=== PATIENT | female | born 1945 | race Caucasian/White ===

== ENCOUNTER 2017-03-02 17:48 | Inpatient (IN) | payer BC, OTHER ==
[~2017-03-02] VITALS: Ht 167.6 cm; Wt 91.0 kg
[~2017-03-02 17:48] MED LIST changes: -BNTHP PO; -CYAN100T PO; -ERGO500037 PO
[2017-03-02] MEDS ORDERED: ONDANSETRON INJ 2 MG/ML 2 ML VIAL IV STA (18:17)
[2017-03-02] MEDS ORDERED: SODIUM CHLORIDE 0.9% 1000ML 1,000 ML IV STA (18:17)
[2017-03-02] MEDS ORDERED: HYDROmorphone INJ 0.5 MG/0.5 ML SYR IV PRN (18:30)
[2017-03-02] MEDS ORDERED: OPTIRAY 320 IV PRN (18:30)
[2017-03-02 18:33] LABS: BASO % 0.2 %; BASO ABS # 0.03 K/uL (0-0.2); HEMOGLOBIN 15.7 g/dL (12.0-16.0); IG# 0.08 K/uL (0.00-0.02); LYMPH ABS # 1.66 K/uL (1.2-3.4); MEAN CELL VOLUME 89.5 fL (80-100); MEAN CORPUSCULAR HEMOGLOBIN 31.2 pg (25-34); MEAN CORPUSCULAR HGB CONC 34.9 g/dl (32-36); MEAN PLATELET VOLUME 11.5 fL (7.4-10.4); MONO % 9.8 %; MONO ABS # 1.81 K/uL (0.11-0.59); NEUT % 80.6 %; NEUT ABS # 14.92 K/uL (1.4-6.5); PLATELET COUNT 281 K/uL (130-400); RED CELL DISTRIBUTION WIDTH CV 13.3 % (11.5-14.5); RED CELL DISTRIBUTION WIDTH SD 43.6 fL (36.4-46.3)
--- NOTE | 2017-03-02 18:36 | EMERGENCY ROOM VISIT NOTE ---
History Report prepared by Anuel: David Kemp Under the Supervision of: Dr. Danny Sullivan M.D. First contact with patient: 18:04 Chief Complaint: GI ASSESSMENT Stated Complaint: INTESTINAL PAIN,NAUSEA History of Present Illness The patient is a 71 year old female who presents to the Emergency Room with complaints of constant abdominal pain beginning three weeks ago. The patient states that she saw her PCP about a week ago and was told to provide a sample for c diff testing. She notes that the specimen was not used because it was too formed. She reports that she gave a second sample for testing today. The patient states that her PCP started her on Bentyl, which she notes has worsened her pain. She also complains of occasional black stool, chills, a headache, and a decreased appetite after taking Kaopectate. Pt denies LOC, fevers, diaphoresis , visual changes, neck pain, chest pain, breathing difficulties, nausea, vomiting, back pain, hematochezia, urinary symptoms, numbness, weakness, lymphadenopathy, rash, swollen glands, trauma or other complaints. She notes that she has not taken pepto for the past few days. She notes that she has a history of diabetes, hypertension, and has had a cholecystectomy. She rates her pain as a 9/10. Source of History: patient Onset: three weeks ago Position: abdomen Symptom Intensity: 9/10 Timing: constant Modifying Factors (Worsening): other (Bentyl) Associated Symptoms: + chills, + headache Note: She also complains of occasional black stool and a decreased appetite. Review of Systems See HPI for pertinent positives and negatives. A total of ten systems were reviewed and were otherwise negative. Past Medical & Surgical Medical Problems: (1) Diabetes (2) Diabetes (3) Hypertension (4) Hypertension Surgical Problems: (1) S/P cholecystectomy (2) S/P cholecystectomy Family History No pertinent family history stated. Social History Smoking Status: Former Smoker Marital Status: Occupation Status: employed Current/Historical Medications Scheduled Atorvastatin (Lipitor), 20 MG PO QPM B-Complex Vitamins (Vitamin B Complex), 1 TAB PO QAM Bupropion Hcl (Wellbutrin Xl), 1 TAB PO QAM Cyanocobalamin (Vitamin B-12), 100 MCG PO DAILY Ergocalciferol (Vitamin D 92898 Unit), 50,000 UNIT PO WK Levothyroxine Sodium (Synthroid), 175 MCG PO QAM Lisinopril (Zestril), 1 TAB PO Q2D Metformin Hcl (Glucophage), 500 MG PO DAILY Harrell-3 Fatty Acids (Fish Oil), 1 CAP PO QAM Scheduled PRN Dicyclomine HCl (Dicyclomine HCl), 10 MG PO Q6 PRN for ABD PAIN Allergies Coded Allergies: NO KNOWN DRUG ALLERGIES (Verified Allergy, Unknown, ., 02/25/15) Physical Exam Vital Signs Date Time Temp Pulse Resp B/P (MAP) Pulse Ox O2 Delivery O2 Flow Rate FiO2 03/02/17 21:32 83 20 104/52 95 Nasal Cannula 2.0 03/02/17 21:10 80 18 94 03/02/17 21:05 81 24 93 Nasal Cannula 2.0 03/02/17 21:01 91/51 03/02/17 21:00 82 21 95 03/02/17 20:30 80 20 102/45 94 Nasal Cannula 2.0 03/02/17 20:00 85 21 96/51 94 Nasal Cannula 2.0 03/02/17 19:22 96 Nasal Cannula 2.0 03/02/17 19:20 87 Room Air 03/02/17 19:14 88 03/02/17 19:07 89 20 104/53 94 Room Air 03/02/17 17:59 37.6 107 20 104/61 94 Room Air Physical Exam GENERAL: Awake, alert, uncomfortable-appearing, in no distress HENT: Normocephalic, atraumatic. Oropharynx unremarkable. EYES: Normal conjunctiva. Sclera non-icteric. NECK: Supple. No nuchal rigidity. FROM. No JVD. RESPIRATORY: Clear to auscultation. CARDIAC: Regular rate, normal rhythm. Extremities warm and well perfused. Pulses equal. ABDOMEN: Soft, non-distended. No rebound or guarding. No masses. Mild diffuse tenderness but worse on left lower side. RECTAL: Deferred. MUSCULOSKELETAL: Chest examination reveals no tenderness. The back is symmetrical on inspection without obvious abnormality. There is no CVA tenderness to palpation. No joint edema. LOWER EXTREMITIES: Calves are equal size bilaterally and non-tender. No edema. No discoloration. NEURO: Normal sensorium. No sensory or motor deficits noted. SKIN: No rash or jaundice noted. Medical Decision & Procedures ER Provider Diagnostic Interpretation: Radiology results as stated below per my review and radiologist interpretation: CT SCAN OF THE ABDOMEN AND PELVIS WITHOUT IV CONTRAST CLINICAL HISTORY: Generalized abdominal pain. COMPARISON STUDY: No priors. TECHNIQUE: CT scan of the abdomen and pelvis is performed from the lung bases to the proximal femora. Images are reviewed in the axial, sagittal, and coronal planes. IV contrast was not administered for this examination as per the referring clinician. Note that the examination was performed in suboptimal fashion without oral and IV contrast. A dose lowering technique was utilized adhering to the principles of ALARA. CT DOSE: 717.49 mGy.cm FINDINGS: Lung bases: The heart is normal in size and without pericardial effusion. There is a trace right pleural effusion. Bibasilar scarring versus atelectasis is noted. No airspace consolidation is seen typical for pneumonia. Liver: The unenhanced liver is normal in size, contour, and attenuation. There is mild central intrahepatic biliary ductal dilatation. Gallbladder: Not identified and presumed surgically absent. Spleen: Normal in size and attenuation. Pancreas: The unenhanced pancreas is atrophic and grossly unremarkable. Adrenal glands: Unremarkable. Kidneys: The unenhanced kidneys are atrophic and without hydronephrosis. There are no renal calculi identified. There is no evidence of contour deforming renal mass lesion. Abdominal vasculature: The abdominal aorta is normal in course and caliber noting moderate to advanced atherosclerotic calcification. Bowel: There is diffuse colonic wall thickening and edema with surrounding inflammatory change and fluid. This is greatest involving the right colon. The appearance is consistent with a nonspecific pancolitis. There are scattered colonic diverticula. No bowel obstruction is seen. The appendix is not visualized. There is a small duodenal diverticulum. Peritoneum: There is trace perisplenic ascites. A small volume of free fluid is seen within the paracolic gutters, right greater than left as well as in the pelvis. No intraperitoneal free air is seen. There is a small fat-containing umbilical hernia. Lymphadenopathy: None. Pelvic viscera: The bladder and uterus are normal as visualized. The right ovary appears enlarged and heterogeneous as seen on image #341. This measures 4.4 x 3.8 cm. There is also prominence of the left ovary which measures up to 3.3 cm. Skeletal structures: The skeletal structures are osteopenic. There is moderate lumbosacral spondylosis. No lytic or blastic lesions are seen. IMPRESSION: 1. Suboptimal examination without oral and IV contrast. 2. Findings are consistent with a nonspecific severe pancolitis. This is not in a vascular distribution and likely on an infectious/inflammatory basis. Clinical correlation will be required. 3. There is a small volume of abdominopelvic ascites, likely reactive. No intraperitoneal free air is seen. 4. Trace right pleural effusion. 5. The ovaries appear enlarged, heterogeneous, and hyperdense. This is of indeterminant etiology and significance. Follow-up with a pelvic ultrasound is recommended for further assessment. 6. Additional findings as above. Electronically signed by: Rk Mcpherson M.D. 03/02/2017 7:09 PM Laboratory Results 03/02/17 18:20 Red Blood Count 5.03, Mean Corpuscular Volume 89.5, Mean Corpuscular Hemoglobin 31.2, Mean Corpuscular Hemoglobin Concent 34.9, Mean Platelet Volume 11.5, Neutrophils (%) (Auto) 80.6, Lymphocytes (%) (Auto) 9.0, Monocytes (%) (Auto) 9.8, Eosinophils (%) (Auto) 0.0, Basophils (%) (Auto) 0.2, Neutrophils # (Auto) 14.92, Lymphocytes # (Auto) 1.66, Monocytes # (Auto) 1.81, Eosinophils # (Auto) 0.00, Basophils # (Auto) 0.03 03/02/17 18:20 Test 03/02/17 18:20 White Blood Count 18.50 K/uL (4.8-10.8) Red Blood Count 5.03 M/uL (4.2-5.4) Hemoglobin 15.7 g/dL (12.0-16.0) Hematocrit 45.0 % (37-47) Mean Corpuscular Volume 89.5 fL (80-100) Mean Corpuscular Hemoglobin 31.2 pg (25-34) Mean Corpuscular Hemoglobin Concent 34.9 g/dl (32-36) Platelet Count 281 K/uL (130-400) Mean Platelet Volume 11.5 fL (7.4-10.4) Neutrophils (%) (Auto) 80.6 % Lymphocytes (%) (Auto) 9.0 % Monocytes (%) (Auto) 9.8 % Eosinophils (%) (Auto) 0.0 % Basophils (%) (Auto) 0.2 % Neutrophils # (Auto) 14.92 K/uL (1.4-6.5) Lymphocytes # (Auto) 1.66 K/uL (1.2-3.4) Monocytes # (Auto) 1.81 K/uL (0.11-0.59) Eosinophils # (Auto) 0.00 K/uL (0-0.5) Basophils # (Auto) 0.03 K/uL (0-0.2) RDW Standard Deviation 43.6 fL (36.4-46.3) RDW Coefficient of Variation 13.3 % (11.5-14.5) Immature Granulocyte % (Auto) 0.4 % Immature Granulocyte # (Auto) 0.08 K/uL (0.00-0.02) Anion Gap 10.0 mmol/L (3-11) Est Creatinine Clear Calc Drug Dose 64.8 ml/min Estimated GFR () 76.6 Estimated GFR (Non- 66.1 BUN/Creatinine Ratio 14.9 (10-20) Calcium Level 8.6 mg/dl (8.5-10.1) Total Bilirubin 0.9 mg/dl (0.2-1) Direct Bilirubin 0.2 mg/dl (0-0.2) Aspartate Amino Transf (AST/SGOT) 14 U/L (15-37) Alanine Aminotransferase (ALT/SGPT) 13 U/L (12-78) Alkaline Phosphatase 57 U/L (45-117) Total Protein 6.1 gm/dl (6.4-8.2) Albumin 2.6 gm/dl (3.4-5.0) Lipase 50 U/L (73-393) Laboratory results reviewed by me Medications Administered Medications (Trade) Dose Ordered Sig/Sejal Route Start Time Stop Time Status Last Admin Dose Admin Sodium Chloride 1,000 ml @ 999 mls/hr Q1H1M STAT IV 03/02/17 18:17 03/02/17 19:17 DC 03/02/17 18:32 999 MLS/HR Hydromorphone HCl (Dilaudid Inj) 0.5 mg Q15M PRN IV 03/02/17 18:30 03/16/17 18:29 03/02/17 18:32 0.5 MG Ondansetron HCl (Zofran Inj) 4 mg NOW STAT IV 03/02/17 18:17 03/02/17 18:19 DC 03/02/17 18:32 4 MG Vancomycin HCl (Vancomycin Oral Soln) 125 mg NOW STAT PO 03/02/17 20:44 03/02/17 20:46 DC 03/02/17 21:28 125 MG Metronidazole (Flagyl / Nss) 500 mg NOW STAT IV 03/02/17 20:44 03/02/17 20:46 DC 03/02/17 21:28 500 MG ECG Indication: abdominal pain Rate (beats per minute): 95 Rhythm: sinus rhythm Findings: PAC, other (No ischemia) Change: Patient's electrocardiogram interpreted by me. ED Course 1814: The patient was evaluated in room A12. A complete history and physical exam was performed. Prior records suggest c diff results pending. 1816: Zofran Inj 4mg IV, Sodium Chloride 1000 ml @ 999 mls/hr IV 1907: I reevaluated and updated the patient. 2040: I discussed the patient's case with Dr. Pisano - [facility]. 2043: Metronidazole 500mg IV, Vancomycin HCl 125mg PO 2047: Upon reexamination, the patient was stable. I discussed the test results and treatment plan with her. Discussed the patient's case with Dr. Rene - Hospitalist[facility]ehuda. The patient will be evaluated for further treatment and disposition. Medical Decision Triage Nursing notes reviewed. The patient's presentation and history were concerning for abdominal pain. Etiologies such as appendicitis, diverticulitis, obstruction, inflammatory bowel disease, renal colic, PUD, biliary pathology, pancreatitis, mesenteric ischemia, aortic pathology, infections, genitourinary, UTI, perforated viscus, as well as others were entertained. The patient was evaluated. She had generalized abdominal tenderness but it was worse in the left lower quadrant. She was uncomfortable and requested analgesia. He was given IV normal saline, IV Zofran, and IV Dilaudid. Blood work and urinalysis were ordered. CT imaging was ordered. The patient had a significant leukocytosis. Chemistry panel was unremarkable. Urinalysis pending. CT scan revealed severe pancolitis. The patient's outpatient C. difficile testing then returned positive. Her condition would fit with severe C. difficile colitis. She had a consult placed with gastroenterology. Oral vancomycin and IV Flagyl was recommended. Consultation was made with the hospitalist service. She was informed and educated. She was pleased with the treatment. She was evaluated by the hospitalist in the Emergency Room for further management. Medication Reconcilliation Current Medication List: was personally reviewed by me Blood Pressure Screening Patient's blood pressure: Normal blood pressure Blood pressure disposition: Did not require urgent referral Consults Time Called: 2036 Consulting Physician: Dr. Pisano - [facility] Returned Call: 2040 Discussed the patient's case. Additional Consults: Time Called: 2044 Consulted Physician: Dr. Rene - [facility] Returned Call: 2047 Additional Comments: Discussed the patient's case. The patient will be evaluated for further treatment and disposition. Impression Primary Impression: C. difficile colitis Scribe Attestation The scribe's documentation has been prepared under my direction and personally reviewed by me in its entirety. I confirm that the note above accurately reflects all work, treatment, procedures, and medical decision making performed by me. Departure Information Dispostion Being Evaluated By Hospitalist Referrals Shahida Aldana M.D. (PCP) Patient Instructions My [facility]
[2017-03-02] MEDS ORDERED: ERGO500037 PO (18:48)
[2017-03-02] MEDS ORDERED: BNTHP PO (18:48)
[2017-03-02] MEDS ORDERED: CYAN100T PO (18:48)
[2017-03-02 18:51] LABS: ALBUMIN 2.6 gm/dl (3.4-5.0); CALCIUM 8.6 mg/dl (8.5-10.1); CREATININE 0.87 mg/dl (0.60-1.20); POTASSIUM 3.7 mmol/L (3.5-5.1)
[2017-03-02 18:54] LABS: TOTAL PROTEIN 6.1 gm/dl (6.4-8.2)
--- NOTE | 2017-03-02 19:10 | DIAGNOSTIC IMAGING REPORT ---
CT SCAN OF THE ABDOMEN AND PELVIS WITHOUT IV CONTRAST CLINICAL HISTORY: Generalized abdominal pain. COMPARISON STUDY: No priors. TECHNIQUE: CT scan of the abdomen and pelvis is performed from the lung bases to the proximal femora. Images are reviewed in the axial, sagittal, and coronal planes. IV contrast was not administered for this examination as per the referring clinician. Note that the examination was performed in suboptimal fashion without oral and IV contrast. A dose lowering technique was utilized adhering to the principles of ALARA. CT DOSE: 717.49 mGy.cm FINDINGS: Lung bases: The heart is normal in size and without pericardial effusion. There is a trace right pleural effusion. Bibasilar scarring versus atelectasis is noted. No airspace consolidation is seen typical for pneumonia. Liver: The unenhanced liver is normal in size, contour, and attenuation. There is mild central intrahepatic biliary ductal dilatation. Gallbladder: Not identified and presumed surgically absent. Spleen: Normal in size and attenuation. Pancreas: The unenhanced pancreas is atrophic and grossly unremarkable. Adrenal glands: Unremarkable. Kidneys: The unenhanced kidneys are atrophic and without hydronephrosis. There are no renal calculi identified. There is no evidence of contour deforming renal mass lesion. Abdominal vasculature: The abdominal aorta is normal in course and caliber noting moderate to advanced atherosclerotic calcification. Bowel: There is diffuse colonic wall thickening and edema with surrounding inflammatory change and fluid. This is greatest involving the right colon. The appearance is consistent with a nonspecific pancolitis. There are scattered colonic diverticula. No bowel obstruction is seen. The appendix is not visualized. There is a small duodenal diverticulum. Peritoneum: There is trace perisplenic ascites. A small volume of free fluid is seen within the paracolic gutters, right greater than left as well as in the pelvis. No intraperitoneal free air is seen. There is a small fat-containing umbilical hernia. Lymphadenopathy: None. Pelvic viscera: The bladder and uterus are normal as visualized. The right ovary appears enlarged and heterogeneous as seen on image #341. This measures 4.4 x 3.8 cm. There is also prominence of the left ovary which measures up to 3.3 cm. Skeletal structures: The skeletal structures are osteopenic. There is moderate lumbosacral spondylosis. No lytic or blastic lesions are seen. IMPRESSION: 1. Suboptimal examination without oral and IV contrast. 2. Findings are consistent with a nonspecific severe pancolitis. This is not in a vascular distribution and likely on an infectious/inflammatory basis. Clinical correlation will be required. 3. There is a small volume of abdominopelvic ascites, likely reactive. No intraperitoneal free air is seen. 4. Trace right pleural effusion. 5. The ovaries appear enlarged, heterogeneous, and hyperdense. This is of indeterminant etiology and significance. Follow-up with a pelvic ultrasound is recommended for further assessment. 6. Additional findings as above. Electronically signed by: Rk Mcpherson M.D. 03/02/2017 7:09 PM Dictated Date/Time: 03/02/2017 7:03 PM
[2017-03-02] MEDS ORDERED: VANCOMYCIN HCL 125 MG/2.5ML SOLN PO STA (20:44)
[2017-03-02] MEDS ORDERED: METRONIDAZOLE 500MG / 100ML NSS IV STA (20:44)
[2017-03-02] MEDS ORDERED: NITROGLYCERIN 0.4 MG SL PER TAB CHARGE SL PRN (22:15)
[2017-03-02] MEDS ORDERED: GLUCOSE 40% GEL 15 GM TUBE PO PRN (22:30)
[2017-03-02] MEDS ORDERED: GLUCAGON FOR INJ 1 MG VIAL SQ PRN (22:30)
[2017-03-02] MEDS ORDERED: GLUCOSE 10 TABS/TUBE PO PRN (22:30)
[2017-03-02] MEDS ORDERED: VANCOMYCIN HCL 125 MG/2.5ML SOLN PO SCH (22:30)
[2017-03-02] MEDS ORDERED: DEXTROSE 50% 50 ML SYR IV PRN (22:30)
[2017-03-02] MEDS ORDERED: SODIUM CHLORIDE 0.9% 1000ML 1,000 ML IV SCH (22:45)
--- NOTE | 2017-03-02 23:10 | History and Physical ---
History & Physical Date & Time of Service: Mar 02, 2017 at 22:31 Chief Complaint: Intestinal Pain,Nausea Primary Care Physician: Shahida Aldana M.D. History of Present Illness Source: patient, family, hospital records Pt is 71 y/o F with PMH HTN, DM II, hypothyroidism, dyslipidemia presented to ER with c/o abdominal pain x 3-4 weeks. Pt states past 3 weeks with abdominal pain. Started across lower abdomen but past several days with diffuse abdominal aching and pressure sensation. C/O diarrhea x 3-4 weeks with 3-9 episodes daily. Tried Kaopectate without relief. Pt states was seen by [facility] yesterday and had c-diff and Rx Bentyl. She feels abdominal pain worsened and presented to ER today. C-diff results positive today.[place] chilled today. She states sometimes noticed darker brown/black color stool and sometimes brown color. Denies hematochezia. Denies hx C-diff or around ill contact. Reports was on 2 antibiotics for sinusitis in 12/2016. Pt unsure of names but thinks may have been Levaquin and Flagyl? In ER temp: 37.6, P: 107 to 83, BP: 91/51 to 104/52. R: 20, 94% on 2L. WBC: 18.5. CT abd/pelvis: non-specific pancolitis. Pt given 1L NSS, zofran 4mg IV, dilaudid 0.5mg IV. GI consulted recommend vanco 125mg po and flagyl 500mg IV which was started in ER. Past Medical/Surgical History Medical Problems: (1) Diabetes Status: Chronic (2) Dyslipidemia Status: Chronic (3) Hx of squamous cell carcinoma of skin Permanent Comment: removed on face Status: Chronic (4) Hypertension Status: Chronic (5) Hypothyroidism Status: Chronic Surgical Problems: (1) Hx of bilateral breast reduction surgery Status: Resolved (2) Hx of bilateral cataract extraction Status: Resolved (3) Hx of knee surgery Permanent Comment: L meniscus repair Status: Resolved (4) Hx of repair of left rotator cuff Permanent Comment: L shoulder Status: Resolved (5) S/P cholecystectomy Status: Resolved Family History FH: breast cancer FH: lung cancer FH: melanoma Social History Smoking Status: Former Smoker (quit 1991, smoked 1-2ppd x 15 years) Smokeless Tobacco Use: No Alcohol Use: glass wine daily, hasn't drank for past 3 weeks with GI symptoms Drug Use: none Marital Status: Housing status: lives with family Occupational Status: employed Multi-Drug Resistant Organisms History of MDRO: No Allergies Coded Allergies: NO KNOWN DRUG ALLERGIES (Verified Allergy, Unknown, ., 02/25/15) Home Medications Scheduled Atorvastatin (Lipitor), 20 MG PO QPM B-Complex Vitamins (Vitamin B Complex), 1 TAB PO QAM Bupropion Hcl (Wellbutrin Xl), 1 TAB PO QAM Cyanocobalamin (Vitamin B-12), 100 MCG PO DAILY Ergocalciferol (Vitamin D 71655 Unit), 50,000 UNIT PO WK Levothyroxine Sodium (Synthroid), 175 MCG PO QAM Lisinopril (Zestril), 1 TAB PO Q2D Metformin Hcl (Glucophage), 500 MG PO DAILY [place]-3 Fatty Acids (Fish Oil), 1 CAP PO QAM Scheduled PRN Dicyclomine HCl (Dicyclomine HCl), 10 MG PO Q6 PRN for ABD PAIN Review of Systems Constitutional: + chills, No sweats Eyes: No worsening of vision, No eye pain, No redness, No discharge ENT: + tinnitus, No unusual epistaxis, No nasal symptoms, No sore throat, No trouble swallowing Respiratory: No cough, No sputum, No wheezing, No shortness of breath, No dyspnea on exertion, No dyspnea at rest, No hemoptysis Cardiovascular: + problem reported, No chest pain, No orthopnea, No PND, No edema, No palpitations Abdomen: + problem reported (see HPI) Musculoskeletal: No joint pain, No muscle pain, No swelling, No calf pain Genitourinary - Female: No dysuria, No urinary frequency, No urinary urgency, No urinary incontinence, No urinary retention, No hematuria Neurologic: No weakness, No numbness/tingling, No vertigo Endocrine: No excessive thirst, No excessive urination Hematologic / Lymphatic: No abnormal bleeding/bruising, No clotting problems, No night sweats Integumentary: No rash, No itch Physical Exam Vital Signs Date Time Temp Pulse Resp B/P (MAP) Pulse Ox O2 Delivery O2 Flow Rate FiO2 03/02/17 21:32 83 20 104/52 95 Nasal Cannula 2.0 03/02/17 21:10 80 18 94 03/02/17 21:05 81 24 93 Nasal Cannula 2.0 03/02/17 21:01 91/51 03/02/17 21:00 82 21 95 03/02/17 20:30 80 20 102/45 94 Nasal Cannula 2.0 03/02/17 20:00 85 21 96/51 94 Nasal Cannula 2.0 03/02/17 19:22 96 Nasal Cannula 2.0 03/02/17 19:20 87 Room Air 03/02/17 19:14 88 03/02/17 19:07 89 20 104/53 94 Room Air 03/02/17 17:59 37.6 107 20 104/61 94 Room Air General Appearance: WD/WN, no apparent distress Head: normocephalic, atraumatic Eyes: normal inspection, PERRL, EOMI, sclerae normal ENT: hearing grossly normal, pharynx normal, + pertinent finding (mildly dry mucous membranes) Neck: supple, no JVD, trachea midline Respiratory/Chest: chest non-tender, lungs clear, normal breath sounds, no respiratory distress, no accessory muscle use Cardiovascular: regular rate, rhythm, no edema, no murmur, normal peripheral pulses Abdomen/GI: normal bowel sounds, soft, + pertinent finding (diffuse tenderness to palpation without rebound or guarding) Back: no CVA tenderness Extremities/Musculoskelatal: normal inspection, normal capillary refill, no pedal edema, normal range of motion Neurologic/Psych: alert, normal mood/affect, oriented x 3 Skin: normal color, warm/dry Diagnostics Laboratory Results Results Past 24 Hours Test 03/02/17 18:20 03/02/17 22:11 03/02/17 22:12 Range/Units White Blood Count 18.50 4.8-10.8 K/uL Red Blood Count 5.03 4.2-5.4 M/uL Hemoglobin 15.7 12.0-16.0 g/dL Hematocrit 45.0 37-47 % Mean Corpuscular Volume 89.5 80-100 fL Mean Corpuscular Hemoglobin 31.2 25-34 pg Mean Corpuscular Hemoglobin Concent 34.9 32-36 g/dl Platelet Count 281 130-400 K/uL Mean Platelet Volume 11.5 7.4-10.4 fL Neutrophils (%) (Auto) 80.6 % Lymphocytes (%) (Auto) 9.0 % Monocytes (%) (Auto) 9.8 % Eosinophils (%) (Auto) 0.0 % Basophils (%) (Auto) 0.2 % Neutrophils # (Auto) 14.92 1.4-6.5 K/uL Lymphocytes # (Auto) 1.66 1.2-3.4 K/uL Monocytes # (Auto) 1.81 0.11-0.59 K/uL Eosinophils # (Auto) 0.00 0-0.5 K/uL Basophils # (Auto) 0.03 0-0.2 K/uL RDW Standard Deviation 43.6 36.4-46.3 fL RDW Coefficient of Variation 13.3 11.5-14.5 % Immature Granulocyte % (Auto) 0.4 % Immature Granulocyte # (Auto) 0.08 0.00-0.02 K/uL Sodium Level 135 136-145 mmol/L Potassium Level 3.7 3.5-5.1 mmol/L Chloride Level 100 98-107 mmol/L Carbon Dioxide Level 24 21-32 mmol/L Anion Gap 10.0 3-11 mmol/L Blood Urea Nitrogen 13 7-18 mg/dl Creatinine 0.87 0.60-1.20 mg/dl Est Creatinine Clear Calc Drug Dose 64.8 ml/min Estimated GFR () 76.6 Estimated GFR (Non- 66.1 BUN/Creatinine Ratio 14.9 10-20 Random Glucose 133 70-99 mg/dl Calcium Level 8.6 8.5-10.1 mg/dl Total Bilirubin 0.9 0.2-1 mg/dl Direct Bilirubin 0.2 0-0.2 mg/dl Aspartate Amino Transf (AST/SGOT) 14 15-37 U/L Alanine Aminotransferase (ALT/SGPT) 13 12-78 U/L Alkaline Phosphatase 57 45-117 U/L Total Protein 6.1 6.4-8.2 gm/dl Albumin 2.6 3.4-5.0 gm/dl Lipase 50 73-393 U/L Microbiology Results 03/02/17 Blood Culture, Ordered Pending 03/02/17 Blood Culture, Ordered Pending Diagnostic Radiology CT ABD/PELVIS: IMPRESSION: 1. Suboptimal examination without oral and IV contrast. 2. Findings are consistent with a nonspecific severe pancolitis. This is not in a vascular distribution and likely on an infectious/inflammatory basis. Clinical correlation will be required. 3. There is a small volume of abdominopelvic ascites, likely reactive. No intraperitoneal free air is seen. 4. Trace right pleural effusion. 5. The ovaries appear enlarged, heterogeneous, and hyperdense. This is of indeterminant etiology and significance. Follow-up with a pelvic ultrasound is recommended for further assessment. 6. Additional findings as above. EKG EKG: sinus rhythm, rate 95, PACs Impression Assessment and Plan C-DIFF COLITIS Pt with 3-4 week hx abdominal pain, 3-9 episodes diarrhea daily, worsening pain and presented to ER today. Hx antibiotic use 12/2016. [place] chilled today. Had out-pt stool yesterday +c-diff toxin. CT abd/pelvis: Findings are consistent with a nonspecific severe pancolitis. There is a small volume of abdominopelvic ascites, likely reactive. No intraperitoneal free air is seen. In ER temp: 37.6 , P: 107 to 83, BP: 91/51 to 104/52. R: 20, 94% on 2L. WBC: 18.5. Pt given 1L NSS, zofran 4mg IV, dilaudid 0.5mg IV. GI consulted recommend vanco po and flagyl IV which was started in ER. -lactic acid and blood cultures ordered and pending -IVF -Vancomycin po -Flagyl IV -zofran prn -morphine prn -cbc, cmp in am -GI consult DM II No previous HA1c available -hold metformin -NovoLog sliding scale per protocol HTN -Hold lisinopril with low end BP's HYPERLIPIDEMIA -holding lipitor currently with current GI symptoms HYPOTHYROIDISM -continue levothyroxine DEPRESSION -continue wellbutrin DVT PROPHYLAXIS -SCDs DISPOSITION -admit tele -Full Code as per discussion with pt -Follows with Dr Aldana for routine care Pt was seen with Dr Dong. See addendum Agree with above H and P. 71F who recently hd two courses of abx in December for her sinuses presents with ongoing diarrhea for last 3 weeks.Watery diarrhea anywhere between 3 -7 episodes a day. HAs chills but no fevers. HAs abdominal pain. Appetite not great. C diff positive and ct scan shows maldonado colitis. 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 Y/N: Yes Risk Level: Moderate Given or contraindicated: SCD's Additional Copies To Shahida Aldana M.D.
[2017-03-02 23:30] VITALS: BP 122/74; PULSE 81; TEMP 37; Ht 167.6 cm; Wt 91.0 kg
[2017-03-03] VITALS (7 sets, daily range): BP systolic 81–115; BP diastolic 52–67; PULSE 69–85; TEMP 36.8–37.8; O2SAT 90–99
[2017-03-03] MEDS: MoRPHine SULFATE 2 MG/ML CARP IV PRN ×5 (00:24→20:14)
[2017-03-03] MEDS: ONDANSETRON INJ 2 MG/ML 2 ML VIAL IV PRN ×2 (00:24→09:06)
[2017-03-03] MEDS: ACETAMINOPHEN 325 MG TAB PO PRN ×2 (03:57→16:38)
[2017-03-03] MEDS ORDERED: PNEUMOCOCCAL POLYSACCHARIDES 25 MCG/0.5 ML VIAL/SYR IM. ONE (05:00)
[2017-03-03] MEDS ORDERED: PNEUMOCOCCAL ADMINISTRATION CHARGE ONE (05:00)
[2017-03-03] MEDS: METRONIDAZOLE / NSS 500 MG in PREMIXED NSS 100 ML IV SCH ×3 (05:40→20:27)
[2017-03-03] MEDS: LEVOTHYROXINE 175 MCG TAB PO SCH (05:40)
[2017-03-03 06:38] LABS: BASO % 0.2 %; BASO ABS # 0.03 K/uL (0-0.2); EOS % 0.1 %; EOS ABS # 0.01 K/uL (0-0.5); HEMOGLOBIN 12.8 g/dL (12.0-16.0); IG# 0.09 K/uL (0.00-0.02); LYMPH % 6.3 %; LYMPH ABS # 1.09 K/uL (1.2-3.4); MEAN CORPUSCULAR HEMOGLOBIN 30.3 pg (25-34); MEAN CORPUSCULAR HGB CONC 33.7 g/dl (32-36); MEAN PLATELET VOLUME 11.8 fL (7.4-10.4); MONO % 10.9 %; NEUT ABS # 14.27 K/uL (1.4-6.5); PLATELET COUNT 251 K/uL (130-400); RED CELL DISTRIBUTION WIDTH CV 13.2 % (11.5-14.5); RED CELL DISTRIBUTION WIDTH SD 43.2 fL (36.4-46.3); WHITE BLOOD COUNT 17.39 K/uL (4.8-10.8)
[2017-03-03 06:48] LABS: ALBUMIN 1.9 gm/dl (3.4-5.0); CALCIUM 7.8 mg/dl (8.5-10.1); CREATININE 0.81 mg/dl (0.60-1.20); POTASSIUM 3.6 mmol/L (3.5-5.1)
[2017-03-03 07:01] LABS: TOTAL PROTEIN 4.7 gm/dl (6.4-8.2)
[2017-03-03 08:33] LABS: HEMOGLOBIN A1C 5.6 % (4.5-5.6)
[2017-03-03] MEDS: INSULIN ASPART 100 UNITS/ML 3 ML PEN SC SCH ×4 (08:49→20:25)
[2017-03-03] MEDS: RASPBERRY SYRUP 5 ML UDP PO SCH ×4 (08:55→20:26)
[2017-03-03] MEDS: BuPROPion XL 150 MG TABCR PO SCH (08:55)
[2017-03-03] MEDS: VANCOMYCIN HCL 250 MG/5 ML SOLN PO SCH ×4 (08:56→20:26)
--- NOTE | 2017-03-03 12:00 | Gastrointestinal Consultation ---
Gastrointestinal Consultation Date of Consultation: Mar 03, 2017 Attending Physician: Michoacano Pisano Reason for Consultation: C.diff colitis History of Present Illness Patient is a 71 year old female with medical comorbids of HTN, DM, Hypothyroidism, Dyslipidemia, presented to the hospital with worsening abdominal pain and diarrhea for 3 weeks. Diarrhea is watery, >6 episodes a day, pain is dull, lower abdomen, nonradiating, denies any distension, nausea, vomiting, fever, jaundice, recent travel or sick contacts. No melena or rectal bleed. She took Abx in 12/2016 for sinusitis. Stool studies revealed positive C.diff. Past Medical/Surgical History Medical Problems: (1) C. difficile colitis Status: Acute Past Medical History: as above Past Surgical History: None Family History FH: breast cancer FH: lung cancer FH: melanoma Social History Smoking Status: Never Smoker Drug Use: none Marital Status: Occupation Status: employed Allergies Coded Allergies: NO KNOWN DRUG ALLERGIES (Verified Allergy, Unknown, ., 02/25/15) Current Medications Home Meds and Scripts Medications Dose Route/Sig Max Daily Dose Days Date Category Dicyclomine HCl 1 Ea Cap 10 Mg PO Q6 PRN 03/02/17 Reported Vitamin B-12 (Cyanocobalamin) 100 Mcg Tab 100 Mcg PO DAILY 03/02/17 Reported Vitamin D 57941 Unit (Ergocalciferol) 50,000 Unit Cap 50,000 Unit PO WK 03/02/17 Reported Vitamin B Complex (B-Complex Vitamins) 1 Tab Tab 1 Tab PO QAM 02/01/15 Reported Fish Oil ([place]-3 Fatty Acids) 1 Cap Cap 1 Cap PO QAM 02/01/15 Reported Zestril (Lisinopril) 2.5 Mg Tab 1 Tab PO Q2D 02/01/15 Reported Glucophage (Metformin Hcl) 500 Mg Tab 500 Mg PO DAILY 02/01/15 Reported Lipitor (Atorvastatin) 20 Mg Tab 20 Mg PO QPM 02/01/15 Reported Wellbutrin Xl (Bupropion Hcl) 150 Mg Tab 1 Tab PO QAM 02/01/15 Reported Synthroid (Levothyroxine Sodium) 175 Mcg Tab 175 Mcg PO QAM 02/01/15 Reported Review of Systems Constitutional: No fever, No chills Eyes: No worsening of vision, No eye pain ENT: No hearing loss, No unusual epistaxis Respiratory: No cough, No sputum Cardiac: No chest pain, No orthopnea Abdomen: + see HPI Musculoskeletal: No joint pain, No muscle pain Female : No dysuria, No urinary frequency Psych: No depression symptoms, No anxiety Heme: No abnormal bleeding/bruising, No clotting problems Endo: No fatigue Skin: No rash, No itch Physical Exam Date Time Temp Pulse Resp B/P (MAP) Pulse Ox O2 Delivery O2 Flow Rate FiO2 03/03/17 09:40 Nasal Cannula 2.0 03/03/17 08:09 36.8 81 16 115/64 (81) 92 Room Air 03/03/17 04:00 Nasal Cannula 2.0 03/03/17 03:27 37.3 69 16 98/66 (77) 98 Nasal Cannula 2.5 03/02/17 23:30 37.0 81 15 122/74 Nasal Cannula 2.0 03/02/17 22:48 76 17 97/55 95 03/02/17 21:32 83 20 104/52 95 Nasal Cannula 2.0 03/02/17 21:10 80 18 94 03/02/17 21:05 81 24 93 Nasal Cannula 2.0 03/02/17 21:01 91/51 03/02/17 21:00 82 21 95 03/02/17 20:30 80 20 102/45 94 Nasal Cannula 2.0 03/02/17 20:00 85 21 96/51 94 Nasal Cannula 2.0 03/02/17 19:22 96 Nasal Cannula 2.0 03/02/17 19:20 87 Room Air 03/02/17 19:14 88 03/02/17 19:07 89 20 104/53 94 Room Air 03/02/17 17:59 37.6 107 20 104/61 94 Room Air General Appearance: no apparent distress Eyes: PERRL, EOMI ENT: normal ENT inspection Neck: supple, no JVD Respiratory/Chest: lungs clear, normal breath sounds Cardiovascular: regular rate, rhythm, no edema Abdomen: normal bowel sounds, soft, + tenderness Neurologic/Psych: alert, oriented x 3 Laboratory Results Last 24 Hours Test 03/02/17 18:20 03/02/17 23:27 03/03/17 02:56 03/03/17 05:50 White Blood Count 18.50 K/uL 17.39 K/uL Red Blood Count 5.03 M/uL 4.22 M/uL Hemoglobin 15.7 g/dL 12.8 g/dL Hematocrit 45.0 % 38.0 % Mean Corpuscular Volume 89.5 fL 90.0 fL Mean Corpuscular Hemoglobin 31.2 pg 30.3 pg Mean Corpuscular Hemoglobin Concent 34.9 g/dl 33.7 g/dl Platelet Count 281 K/uL 251 K/uL Mean Platelet Volume 11.5 fL 11.8 fL Neutrophils (%) (Auto) 80.6 % 82.0 % Lymphocytes (%) (Auto) 9.0 % 6.3 % Monocytes (%) (Auto) 9.8 % 10.9 % Eosinophils (%) (Auto) 0.0 % 0.1 % Basophils (%) (Auto) 0.2 % 0.2 % Neutrophils # (Auto) 14.92 K/uL 14.27 K/uL Lymphocytes # (Auto) 1.66 K/uL 1.09 K/uL Monocytes # (Auto) 1.81 K/uL 1.90 K/uL Eosinophils # (Auto) 0.00 K/uL 0.01 K/uL Basophils # (Auto) 0.03 K/uL 0.03 K/uL RDW Standard Deviation 43.6 fL 43.2 fL RDW Coefficient of Variation 13.3 % 13.2 % Immature Granulocyte % (Auto) 0.4 % 0.5 % Immature Granulocyte # (Auto) 0.08 K/uL 0.09 K/uL Sodium Level 135 mmol/L 136 mmol/L Potassium Level 3.7 mmol/L 3.6 mmol/L Chloride Level 100 mmol/L 105 mmol/L Carbon Dioxide Level 24 mmol/L 24 mmol/L Anion Gap 10.0 mmol/L 7.0 mmol/L Blood Urea Nitrogen 13 mg/dl 15 mg/dl Creatinine 0.87 mg/dl 0.81 mg/dl Est Creatinine Clear Calc Drug Dose 64.8 ml/min 70.3 ml/min Estimated GFR () 76.6 83.5 Estimated GFR (Non- 66.1 72.1 BUN/Creatinine Ratio 14.9 18.3 Random Glucose 133 mg/dl 173 mg/dl Calcium Level 8.6 mg/dl 7.8 mg/dl Total Bilirubin 0.9 mg/dl 0.6 mg/dl Direct Bilirubin 0.2 mg/dl Aspartate Amino Transf (AST/SGOT) 14 U/L 9 U/L Alanine Aminotransferase (ALT/SGPT) 13 U/L 11 U/L Alkaline Phosphatase 57 U/L 47 U/L Total Protein 6.1 gm/dl 4.7 gm/dl Albumin 2.6 gm/dl 1.9 gm/dl Lipase 50 U/L Thyroid Stimulating Hormone (TSH) 6.500 uIu/ml Lactic Acid Level 1.1 mmol/L Urine Color ORANGE Urine Appearance CLOUDY Urine pH 5.5 Urine Specific [place] 1.027 Urine Protein 1+ Urine Glucose (UA) NEG Urine Ketones 1+ Urine Occult Blood NEG Urine Nitrite POS Urine Bilirubin NEG Urine Urobilinogen NEG Urine Leukocyte Esterase SMALL Urine WBC (Auto) 5-10 /hpf Urine RBC (Auto) 0-4 /hpf Urine Hyaline Casts (Auto) 5-10 /lpf Urine Epithelial Cells (Auto) >30 /lpf Urine Bacteria (Auto) 1+ Urine Mucus PRESENT Urine Yeast (Auto) PRESENT Estimated Average Glucose 114 mg/dl Hemoglobin A1c 5.6 % Globulin 2.8 gm/dl Albumin/Globulin Ratio 0.7 Test 03/03/17 07:05 Bedside Glucose 152 mg/dl Impression Patient is a 71 year old female with abdominal pain and worsening diarrhea for few weeks, took ABx for sinusitis 2 months ago, now found with C.diff colitis. CT scan showed pancolitis but no megacolon. No clinical ileus. Her WBC is >15 and albumin is low, kidney functions remains normal. She fits criteria for severe CDI. Started on PO Vancomycin 125mg and IV FLagyl. Today feels slightly better. Impression: 1st episode of Severe CDI, no ileus or megacolon. Plan Continue PO Vancomycin to complete 10 days course. Can continue IV Flagyl for now. Avoid Opioids. IV Hydration. Clear liquid diet only. Monitor WBC and kidney function. Monitor Lactic acid. Serial abdominal exam. Urgent surgical consult if she develops ileus, marked distension or worsening labs.
--- NOTE | 2017-03-03 15:43 | Progress Note ---
Medicine Progress Note Date & Time of Visit: Mar 03, 2017 at 15:18. Subjective Pt was seen and examined Lying in bed with no distress Pt said that she continues to have abdominal tenderness She said that she continues to have multiple episodes of diarrhea Denies any vomiting, chest pain, palpitation and SOB Objective Last 8 Hrs Date Time Temp Pulse Resp B/P (MAP) Pulse Ox O2 Delivery O2 Flow Rate FiO2 03/03/17 12:18 36.8 77 18 102/67 (79) 93 Room Air 03/03/17 12:00 Nasal Cannula 2.0 03/03/17 09:40 Nasal Cannula 2.0 03/03/17 08:09 36.8 81 16 115/64 (81) 92 Room Air 03/03/17 08:00 Room Air Physical Exam: General- No acute distress Head- atraumatic Eyes- PERRL, EOMI ENT- oropharynx clear Neck- supple, no JVD Lungs- no wheezing Heart- no murmur Abdomen +Tenderness, soft Extremities- no calf tenderness Neuro- alert, oriented x 3; PERRL Skin- warm & dry Laboratory Results: Last 24 Hours Test 03/02/17 18:20 03/02/17 23:27 03/03/17 02:56 03/03/17 05:50 White Blood Count 18.50 K/uL 17.39 K/uL Red Blood Count 5.03 M/uL 4.22 M/uL Hemoglobin 15.7 g/dL 12.8 g/dL Hematocrit 45.0 % 38.0 % Mean Corpuscular Volume 89.5 fL 90.0 fL Mean Corpuscular Hemoglobin 31.2 pg 30.3 pg Mean Corpuscular Hemoglobin Concent 34.9 g/dl 33.7 g/dl Platelet Count 281 K/uL 251 K/uL Mean Platelet Volume 11.5 fL 11.8 fL Neutrophils (%) (Auto) 80.6 % 82.0 % Lymphocytes (%) (Auto) 9.0 % 6.3 % Monocytes (%) (Auto) 9.8 % 10.9 % Eosinophils (%) (Auto) 0.0 % 0.1 % Basophils (%) (Auto) 0.2 % 0.2 % Neutrophils # (Auto) 14.92 K/uL 14.27 K/uL Lymphocytes # (Auto) 1.66 K/uL 1.09 K/uL Monocytes # (Auto) 1.81 K/uL 1.90 K/uL Eosinophils # (Auto) 0.00 K/uL 0.01 K/uL Basophils # (Auto) 0.03 K/uL 0.03 K/uL RDW Standard Deviation 43.6 fL 43.2 fL RDW Coefficient of Variation 13.3 % 13.2 % Immature Granulocyte % (Auto) 0.4 % 0.5 % Immature Granulocyte # (Auto) 0.08 K/uL 0.09 K/uL Sodium Level 135 mmol/L 136 mmol/L Potassium Level 3.7 mmol/L 3.6 mmol/L Chloride Level 100 mmol/L 105 mmol/L Carbon Dioxide Level 24 mmol/L 24 mmol/L Anion Gap 10.0 mmol/L 7.0 mmol/L Blood Urea Nitrogen 13 mg/dl 15 mg/dl Creatinine 0.87 mg/dl 0.81 mg/dl Est Creatinine Clear Calc Drug Dose 64.8 ml/min 70.3 ml/min Estimated GFR () 76.6 83.5 Estimated GFR (Non- 66.1 72.1 BUN/Creatinine Ratio 14.9 18.3 Random Glucose 133 mg/dl 173 mg/dl Calcium Level 8.6 mg/dl 7.8 mg/dl Total Bilirubin 0.9 mg/dl 0.6 mg/dl Direct Bilirubin 0.2 mg/dl Aspartate Amino Transf (AST/SGOT) 14 U/L 9 U/L Alanine Aminotransferase (ALT/SGPT) 13 U/L 11 U/L Alkaline Phosphatase 57 U/L 47 U/L Total Protein 6.1 gm/dl 4.7 gm/dl Albumin 2.6 gm/dl 1.9 gm/dl Lipase 50 U/L Thyroid Stimulating Hormone (TSH) 6.500 uIu/ml Lactic Acid Level 1.1 mmol/L Urine Color ORANGE Urine Appearance CLOUDY Urine pH 5.5 Urine Specific [place] 1.027 Urine Protein 1+ Urine Glucose (UA) NEG Urine Ketones 1+ Urine Occult Blood NEG Urine Nitrite POS Urine Bilirubin NEG Urine Urobilinogen NEG Urine Leukocyte Esterase SMALL Urine WBC (Auto) 5-10 /hpf Urine RBC (Auto) 0-4 /hpf Urine Hyaline Casts (Auto) 5-10 /lpf Urine Epithelial Cells (Auto) >30 /lpf Urine Bacteria (Auto) 1+ Urine Mucus PRESENT Urine Yeast (Auto) PRESENT Estimated Average Glucose 114 mg/dl Hemoglobin A1c 5.6 % Globulin 2.8 gm/dl Albumin/Globulin Ratio 0.7 Test 03/03/17 07:05 03/03/17 11:16 Bedside Glucose 152 mg/dl 134 mg/dl Date/Time Source Procedure Growth Status 03/02/17 23:35 Blood Blood Culture Pending Received 03/02/17 23:27 Blood Blood Culture Pending Received 03/03/17 02:56 Urine , Clean Catch Urine Culture Pending Received Assessment & Plan C-DIFF COLITIS/DIARRHEA CT abdomen showed findings consistent with a nonspecific severe pancolitis Stool positive for Cdiff WBC on admission 18K, trending to 17K today febrile on admission lactic acid normal Gastro on board Recommended to continue flagyl IV and vanco po Continue IVF Continue clear liquid diet pain control Repeat abdominal xray Monitor for any abdominal distention or ileus. if occurs, will consult surgery ABNORMAL UA UA positive for nitrite, small leukocytes Denies any urinary symptoms Due to ongoing C-diff will follow urine cx before starting broad spectrum abx treatment Follow up urine cx. DM II HBA1C 5.6 continue holding metformin Continue NovoLog sliding scale per protocol HTN Continue holding lisinopril HYPERLIPIDEMIA Stable HYPOTHYROIDISM On levothyroxine DEPRESSION On wellbutrin DVT PROPHYLAXIS SCDs DISPOSITION On telemetry Consultants: gastro Current Inpatient Medications: Current Inpatient Medications Medications (Trade) Dose Ordered Sig/Sejal Route Start Time Stop Time Status Last Admin Dose Admin Ioversol (Optiray 320) 100 ml UD PRN IV 03/02/17 18:30 03/06/17 18:29 Acetaminophen (Tylenol Tab) 650 mg Q4H PRN PO 03/02/17 22:15 04/01/17 22:14 03/03/17 03:57 650 MG Ondansetron HCl (Zofran Inj) 4 mg Q6H PRN IV 03/02/17 22:15 04/01/17 22:14 03/03/17 09:06 4 MG Nitroglycerin (Nitrostat Tab) 0.4 mg UD PRN SL 03/02/17 22:15 04/01/17 22:14 Metronidazole 500 mg/Prmx 100 ml @ 100 mls/hr Q8H IV 03/03/17 06:00 03/13/17 05:59 03/03/17 13:50 100 MLS/HR Insulin Aspart (novoLOG ASPART) SLIDING SCALE If C... ACHS SC 03/03/17 07:00 04/02/17 06:59 03/03/17 12:48 5 UNITS Glucose (Glucose 40% Gel) 15-30 GRAMS 15 GRAMS... UD PRN PO 03/02/17 22:30 04/01/17 22:29 Glucose (Glucose Chew Tab) 4-8 Tablets 4 Tabl... UD PRN PO 03/02/17 22:30 04/01/17 22:29 Dextrose (Dextrose 50% 50ML Syringe) 25-50ML OF 50% DW IV FOR... UD PRN IV 03/02/17 22:30 04/01/17 22:29 Glucagon (Glucagon Inj) 1 mg UD PRN SQ 03/02/17 22:30 04/01/17 22:29 Morphine Sulfate (MoRPHine SULFATE INJ) 2 mg Q4 PRN IV 03/02/17 22:30 03/16/17 22:29 03/03/17 14:00 2 MG Vancomycin HCl (Vancomycin Oral Soln) 250 mg QID PO 03/03/17 09:00 03/13/17 08:59 03/03/17 12:49 250 MG Bupropion HCl (Wellbutrin-Xl Tab) 150 mg QAM PO 03/03/17 09:00 04/02/17 08:59 03/03/17 08:55 150 MG Levothyroxine Sodium (Synthroid Tab) 175 mcg DAILYBB PO 03/03/17 06:00 04/02/17 05:59 03/03/17 05:40 175 MCG Raspberry (Raspberry Syrup 5ml Cup) 5 ml QID PO 03/03/17 09:00 03/17/17 08:59 03/03/17 12:49 5 ML
[2017-03-03] MEDS: SODIUM CHLORIDE 0.9% 1000ML 1,000 ML IV SCH ×2 (16:39→20:13)
[2017-03-03] MEDS: PROMETHAZINE HCL INJ 12.5 MG in SODIUM CHLORIDE 0.9% 50ML 50 ML IV PRN (20:14)
[2017-03-04 03:30] VITALS: BP 90/60; PULSE 75; TEMP 37; O2SAT 90
[2017-03-04] MEDS: LEVOTHYROXINE 175 MCG TAB PO SCH (06:48)
[2017-03-04] MEDS: METRONIDAZOLE / NSS 500 MG in PREMIXED NSS 100 ML IV SCH ×3 (07:09→20:48)
[2017-03-04 07:57] VITALS: BP 87/56; PULSE 72; TEMP 36.8; O2SAT 90
[2017-03-04] MEDS: INSULIN ASPART 100 UNITS/ML 3 ML PEN SC SCH ×4 (08:01→20:47)
[2017-03-04] MEDS: VANCOMYCIN HCL 250 MG/5 ML SOLN PO SCH ×4 (08:02→20:47)
[2017-03-04] MEDS: BuPROPion XL 150 MG TABCR PO SCH (08:03)
[2017-03-04] MEDS: RASPBERRY SYRUP 5 ML UDP PO SCH ×4 (08:03→20:47)
[2017-03-04] MEDS: SODIUM CHLORIDE 0.9% 1000ML 1,000 ML IV SCH ×2 (08:59→20:46)
[2017-03-04 09:45] LABS: HEMATOCRIT 38.4 % (37-47); HEMOGLOBIN 13.2 g/dL (12.0-16.0); MEAN CELL VOLUME 89.5 fL (80-100); MEAN CORPUSCULAR HEMOGLOBIN 30.8 pg (25-34); MEAN CORPUSCULAR HGB CONC 34.4 g/dl (32-36); MEAN PLATELET VOLUME 11.2 fL (7.4-10.4); PLATELET COUNT 280 K/uL (130-400); RED CELL DISTRIBUTION WIDTH CV 13.4 % (11.5-14.5); RED CELL DISTRIBUTION WIDTH SD 43.8 fL (36.4-46.3); WHITE BLOOD COUNT 20.39 K/uL (4.8-10.8)
--- NOTE | 2017-03-04 10:06 | Gastroenterology Progress Note ---
Gastroenterology Progress Note Patient was seen and examined, being followed for severe CDI. Today feels better , abdominal pain is less and had only 2 BM which is more formed. On exam: abdomen is nondistended, soft, nontender. Labs: WBC slightly elevated 17>21 Recommendations: Continue Current Flagyl and PO Vanc. Avoid Opioids. Monitor Serial abdominal exam and labs.
[2017-03-04 10:16] LABS: CALCIUM 7.7 mg/dl (8.5-10.1); CREATININE 0.57 mg/dl (0.60-1.20); POTASSIUM 3.7 mmol/L (3.5-5.1)
--- NOTE | 2017-03-04 10:30 | DIAGNOSTIC IMAGING REPORT ---
ABDOMEN 2VIEW W/PA CHEST RTN HISTORY: 71 years-old Female Cdiff acute colitis COMPARISON: CT abdomen and pelvis 03/02/2017 TECHNIQUE: PA view of the chest with erect and supine views of the abdomen FINDINGS: Cardiac silhouette is within normal limits. Atherosclerosis of the aorta. No pneumothorax. Small bilateral pleural effusions with linear subsegmental atelectasis of the right perihilar lung. No lobar airspace consolidations or overt pulmonary edema. Mild right hemidiaphragmatic elevation. The bones of the chest appear grossly intact. The bowel gas pattern is nonobstructive. There is posterior bowel gas noted throughout. There is a small air-fluid level noted within the right upper abdomen, possibly within large bowel. No pneumatosis or pneumoperitoneum identified. No urolith. Calcifications of the pelvis suggest phleboliths. No fracture. Joint changes of the hips and spine with least mild bone demineralization. IMPRESSION: 1. Small bilateral pleural effusions with subsegmental right perihilar subsegmental atelectasis. 2. Nonobstructive bowel gas pattern without pneumoperitoneum. The above report was generated using voice recognition software. It may contain grammatical, syntax or spelling errors. Electronically signed by: Tom Reyes M.D. 03/04/2017 10:29 AM Dictated Date/Time: 03/04/2017 10:26 AM
[2017-03-04] MEDS ORDERED: NURSING VERBAL MED ORDER ONE (10:45)
[2017-03-04 11:56] VITALS: BP 97/64; PULSE 74; TEMP 36.8; O2SAT 91
[2017-03-04] MEDS: PROMETHAZINE HCL INJ 12.5 MG in SODIUM CHLORIDE 0.9% 50ML 50 ML IV PRN ×2 (12:19→20:49)
[2017-03-04] MEDS: CEFTRIAXONE SOD INJ 1 GM in DEXTROSE 5% ADD-VANTAGE 50ML 50 ML IV SCH (14:51)
--- NOTE | 2017-03-04 15:20 | Progress Note ---
Medicine Progress Note Date & Time of Visit: Mar 04, 2017 at 11:11. Subjective Pt was seen and examined Lying in bed with no distress Pt said that she continues to have Diarrhea She said that the abdominal pain improved Pt said that her urine has been very dark in color Denies any any fever, palpitation, dizziness and SOB Objective Last 8 Hrs Date Time Temp Pulse Resp B/P (MAP) Pulse Ox O2 Delivery O2 Flow Rate FiO2 03/04/17 12:35 Room Air 03/04/17 12:00 Room Air 03/04/17 11:56 36.8 74 16 97/64 (75) 91 Room Air 03/04/17 08:00 Nasal Cannula 2.0 03/04/17 08:00 Room Air 03/04/17 07:57 36.8 72 16 87/56 (66) 90 Room Air Physical Exam: General- No acute distress Head- atraumatic Eyes- PERRL, EOMI ENT- oropharynx clear Neck- supple, no JVD Lungs- no wheezing Heart- no murmur Abdomen +Tenderness, soft Extremities- no calf tenderness Neuro- alert, oriented x 3; PERRL Skin- warm & dry Laboratory Results: Last 24 Hours Test 03/03/17 16:33 03/03/17 20:23 03/04/17 06:48 03/04/17 09:33 Bedside Glucose 150 mg/dl 106 mg/dl 104 mg/dl White Blood Count 20.39 K/uL Red Blood Count 4.29 M/uL Hemoglobin 13.2 g/dL Hematocrit 38.4 % Mean Corpuscular Volume 89.5 fL Mean Corpuscular Hemoglobin 30.8 pg Mean Corpuscular Hemoglobin Concent 34.4 g/dl RDW Standard Deviation 43.8 fL RDW Coefficient of Variation 13.4 % Platelet Count 280 K/uL Mean Platelet Volume 11.2 fL Sodium Level 138 mmol/L Potassium Level 3.7 mmol/L Chloride Level 105 mmol/L Carbon Dioxide Level 24 mmol/L Anion Gap 9.0 mmol/L Blood Urea Nitrogen 15 mg/dl Creatinine 0.57 mg/dl Est Creatinine Clear Calc Drug Dose 100.4 ml/min Estimated GFR () 106.6 Estimated GFR (Non- 92.0 BUN/Creatinine Ratio 25.7 Random Glucose 123 mg/dl Calcium Level 7.7 mg/dl Test 03/04/17 11:46 Bedside Glucose 125 mg/dl Assessment & Plan C-DIFF COLITIS/DIARRHEA CT abdomen showed findings consistent with a nonspecific severe pancolitis Stool positive for Cdiff WBC on admission 18K, trending to 17K today febrile on admission lactic acid normal Gastro on board Recommended to continue flagyl IV and vanco po Continue IVF Continue clear liquid diet pain control Repeat abdominal xray Monitor for any abdominal distention or ileus. if occurs, will consult surgery 03/04 Continue to have diarrhea Continue IVF Try to avoid opioid Abdominal is not distended Xray of abd showed nonobstructive bowel gas pattern without pneumoperitoneum Continue Vanco oral and Flagyl WBC increased 17---> 20 Continue monitor cbc advanced diet as tolerated UTI UA positive for nitrite, small leukocytes urine cx grew gram negative bacilli Starting on rocephin IV Monitor CBC DM II HBA1C 5.6 continue holding metformin Continue NovoLog sliding scale per protocol HTN BP in the low side Continue holding lisinopril Monitor BP Hypotension Mostly related to low volume/diarrhea Continue IVF Hold BP med HYPERLIPIDEMIA Stable HYPOTHYROIDISM On levothyroxine DEPRESSION On wellbutrin DVT PROPHYLAXIS SCDs Will start on Lovenox subq CODE STATUS FULL CODE DISPOSITION Continue monitor in tele Consultants: gastro Current Inpatient Medications: Current Inpatient Medications Medications (Trade) Dose Ordered Sig/Sejal Route Start Time Stop Time Status Last Admin Dose Admin Ioversol (Optiray 320) 100 ml UD PRN IV 03/02/17 18:30 03/06/17 18:29 Acetaminophen (Tylenol Tab) 650 mg Q4H PRN PO 03/02/17 22:15 04/01/17 22:14 03/03/17 16:38 650 MG Ondansetron HCl (Zofran Inj) 4 mg Q6H PRN IV 03/02/17 22:15 04/01/17 22:14 03/03/17 09:06 4 MG Nitroglycerin (Nitrostat Tab) 0.4 mg UD PRN SL 03/02/17 22:15 04/01/17 22:14 Metronidazole 500 mg/Prmx 100 ml @ 100 mls/hr Q8H IV 03/03/17 06:00 03/13/17 05:59 03/04/17 13:37 100 MLS/HR Insulin Aspart (novoLOG ASPART) SLIDING SCALE If C... ACHS SC 03/03/17 07:00 2/19/18 06:59 03/03/17 17:21 3 UNITS Glucose (Glucose 40% Gel) 15-30 GRAMS 15 GRAMS... UD PRN PO 03/02/17 22:30 04/01/17 22:29 Glucose (Glucose Chew Tab) 4-8 Tablets 4 Tabl... UD PRN PO 03/02/17 22:30 04/01/17 22:29 Dextrose (Dextrose 50% 50ML Syringe) 25-50ML OF 50% DW IV FOR... UD PRN IV 03/02/17 22:30 04/01/17 22:29 Glucagon (Glucagon Inj) 1 mg UD PRN SQ 03/02/17 22:30 04/01/17 22:29 Morphine Sulfate (MoRPHine SULFATE INJ) 2 mg Q4 PRN IV 03/02/17 22:30 03/16/17 22:29 03/03/17 20:14 2 MG Vancomycin HCl (Vancomycin Oral Soln) 250 mg QID PO 03/03/17 09:00 03/13/17 08:59 03/04/17 12:19 250 MG Bupropion HCl (Wellbutrin-Xl Tab) 150 mg QAM PO 03/03/17 09:00 04/02/17 08:59 03/04/17 08:03 150 MG Levothyroxine Sodium (Synthroid Tab) 175 mcg DAILYBB PO 03/03/17 06:00 04/02/17 05:59 03/04/17 06:48 175 MCG Raspberry (Raspberry Syrup 5ml Cup) 5 ml QID PO 03/03/17 09:00 03/17/17 08:59 03/04/17 12:20 5 ML Sodium Chloride 1,000 ml @ 125 mls/hr Q8H IV 03/03/17 16:30 04/02/17 16:29 03/04/17 08:59 100 MLS/HR Promethazine HCl 12.5 mg/Sodium Chloride 50.5 ml @ 204 mls/hr Q8 PRN IV 03/03/17 19:00 04/02/17 18:59 03/04/17 12:19 204 MLS/HR Ceftriaxone Sodium 1 gm/ Dextrose 50 ml @ 100 mls/hr DAILY@1400 IV 03/04/17 14:00 03/09/17 13:59 1/21/18 14:51 100 MLS/HR
[2017-03-04 16:01] LABS: INR 1.1 (0.9-1.1)
[2017-03-04 16:33] VITALS: BP 114/76; PULSE 79; TEMP 37.1; O2SAT 92
[2017-03-04 20:32] VITALS: BP 103/67; PULSE 79; TEMP 37.4; O2SAT 90
[2017-03-04] MEDS: MoRPHine SULFATE 2 MG/ML CARP IV PRN (20:49)
[2017-03-04 23:30] VITALS: BP 113/72; PULSE 74; TEMP 37; O2SAT 92
[2017-03-05] VITALS (8 sets, daily range): BP systolic 107–135; BP diastolic 67–87; PULSE 69–82; TEMP 36.7–37.1; O2SAT 91–94
[2017-03-05] MEDS: SODIUM CHLORIDE 0.9% 1000ML 1,000 ML IV SCH ×2 (04:30→13:29)
[2017-03-05] MEDS: LEVOTHYROXINE 175 MCG TAB PO SCH (06:27)
[2017-03-05] MEDS: METRONIDAZOLE / NSS 500 MG in PREMIXED NSS 100 ML IV SCH ×3 (06:27→21:04)
[2017-03-05 07:42] LABS: HEMATOCRIT 38.2 % (37-47); HEMOGLOBIN 13.2 g/dL (12.0-16.0); MEAN CELL VOLUME 89.3 fL (80-100); MEAN CORPUSCULAR HEMOGLOBIN 30.8 pg (25-34); MEAN CORPUSCULAR HGB CONC 34.6 g/dl (32-36); MEAN PLATELET VOLUME 11.6 fL (7.4-10.4); PLATELET COUNT 324 K/uL (130-400); RED CELL DISTRIBUTION WIDTH CV 13.6 % (11.5-14.5); RED CELL DISTRIBUTION WIDTH SD 44.4 fL (36.4-46.3); WHITE BLOOD COUNT 16.75 K/uL (4.8-10.8)
[2017-03-05 08:16] LABS: CALCIUM 7.9 mg/dl (8.5-10.1); CREATININE 0.48 mg/dl (0.60-1.20); POTASSIUM 3.4 mmol/L (3.5-5.1)
[2017-03-05] MEDS: RASPBERRY SYRUP 5 ML UDP PO SCH ×4 (08:23→20:02)
[2017-03-05] MEDS: VANCOMYCIN HCL 250 MG/5 ML SOLN PO SCH ×4 (08:23→20:02)
[2017-03-05] MEDS: BuPROPion XL 150 MG TABCR PO SCH (08:24)
[2017-03-05] MEDS: ENOXAPARIN 40 MG/0.4 ML SYR SQ SCH (08:27)
[2017-03-05] MEDS: INSULIN ASPART 100 UNITS/ML 3 ML PEN SC SCH ×4 (08:29→20:52)
--- NOTE | 2017-03-05 09:08 | Gastroenterology Progress Note ---
Progress Note Date of Service: Mar 05, 2017 Subjective Pt evaluation today including: conversation w/ patient, physical exam, lab review, review of studies Patient is a 71 yo female who is currently being treated for C diff. She reports that her abdominal pain and discomfort is greatly improved. She feels that her diarrhea frequency has greatly decreased. She denies rectal bleeding. She denies fever or chills. She reports some nausea. She offers no further complaints at this time. Her WBC count is 16,750. She is also being treated for a Klebsiella UTI with a cephalosporin. Review of Systems Constitutional: No fever, No chills Eyes: No problem reported Respiratory: No cough, No shortness of breath, No dyspnea on exertion Cardiac: No chest pain Abdomen: + nausea, + diarrhea, No pain, No vomiting, No constipation, No GI bleeding Musculoskeletal: No joint pain Psych: No problem reported Heme: No problem reported Skin: No problem reported Medications Current Inpatient Medications Medications (Trade) Dose Ordered Sig/Sejal Route Start Time Stop Time Status Last Admin Dose Admin Ioversol (Optiray 320) 100 ml UD PRN IV 03/02/17 18:30 03/06/17 18:29 Acetaminophen (Tylenol Tab) 650 mg Q4H PRN PO 03/02/17 22:15 04/01/17 22:14 03/03/17 16:38 650 MG Ondansetron HCl (Zofran Inj) 4 mg Q6H PRN IV 03/02/17 22:15 04/01/17 22:14 03/03/17 09:06 4 MG Nitroglycerin (Nitrostat Tab) 0.4 mg UD PRN SL 03/02/17 22:15 04/01/17 22:14 Metronidazole 500 mg/Prmx 100 ml @ 100 mls/hr Q8H IV 03/03/17 06:00 03/13/17 05:59 03/05/17 06:27 100 MLS/HR Insulin Aspart (novoLOG ASPART) SLIDING SCALE If C... ACHS SC 03/03/17 07:00 04/02/17 06:59 03/05/17 08:29 3 UNITS Glucose (Glucose 40% Gel) 15-30 GRAMS 15 GRAMS... UD PRN PO 03/02/17 22:30 04/01/17 22:29 Glucose (Glucose Chew Tab) 4-8 Tablets 4 Tabl... UD PRN PO 03/02/17 22:30 04/01/17 22:29 Dextrose (Dextrose 50% 50ML Syringe) 25-50ML OF 50% DW IV FOR... UD PRN IV 03/02/17 22:30 04/01/17 22:29 Glucagon (Glucagon Inj) 1 mg UD PRN SQ 03/02/17 22:30 04/01/17 22:29 Morphine Sulfate (MoRPHine SULFATE INJ) 2 mg Q4 PRN IV 03/02/17 22:30 03/16/17 22:29 03/04/17 20:49 2 MG Vancomycin HCl (Vancomycin Oral Soln) 250 mg QID PO 03/03/17 09:00 03/13/17 08:59 03/05/17 08:23 250 MG Bupropion HCl (Wellbutrin-Xl Tab) 150 mg QAM PO 03/03/17 09:00 04/02/17 08:59 03/05/17 08:24 150 MG Levothyroxine Sodium (Synthroid Tab) 175 mcg DAILYBB PO 03/03/17 06:00 04/02/17 05:59 03/05/17 06:27 175 MCG Raspberry (Raspberry Syrup 5ml Cup) 5 ml QID PO 03/03/17 09:00 03/17/17 08:59 03/05/17 08:23 5 ML Sodium Chloride 1,000 ml @ 125 mls/hr Q8H IV 03/03/17 16:30 04/02/17 16:29 03/05/17 04:30 125 MLS/HR Promethazine HCl 12.5 mg/Sodium Chloride 50.5 ml @ 204 mls/hr Q8 PRN IV 03/03/17 19:00 04/02/17 18:59 03/04/17 20:49 204 MLS/HR Ceftriaxone Sodium 1 gm/ Dextrose 50 ml @ 100 mls/hr DAILY@1400 IV 03/04/17 14:00 03/09/17 13:59 03/04/17 14:51 100 MLS/HR Enoxaparin Sodium (Lovenox Inj) 40 mg QAM SQ 03/05/17 09:00 04/04/17 08:59 Objective Vital Signs Date Time Temp Pulse Resp B/P (MAP) Pulse Ox O2 Delivery O2 Flow Rate FiO2 03/05/17 07:44 36.9 69 20 111/71 (84) 91 Room Air 03/05/17 04:00 Room Air 03/05/17 03:30 36.9 73 18 107/67 (80) 92 Room Air 03/04/17 23:59 Room Air 03/04/17 23:30 37.0 74 20 113/72 (86) 92 Room Air 03/04/17 20:32 37.4 79 16 103/67 (79) 90 Room Air 03/04/17 20:00 Room Air 03/04/17 16:33 37.1 79 20 114/76 (89) 92 Nasal Cannula 03/04/17 16:00 Room Air 03/04/17 16:00 Room Air 03/04/17 12:35 Room Air 03/04/17 12:00 Room Air 03/04/17 11:56 36.8 74 16 97/64 (75) 91 Room Air Physical Exam General Appearance: WD/WN, no apparent distress Eyes: normal inspection, PERRL Respiratory/Chest: lungs clear, normal breath sounds Cardiovascular: regular rate, rhythm Abdomen: normal bowel sounds, non tender, soft Extremities: non-tender Neurologic/Psych: alert, oriented x 3 Skin: normal color Laboratory Results Last 24 Hours Test 03/04/17 09:33 03/04/17 11:46 03/04/17 15:27 03/04/17 16:35 White Blood Count 20.39 K/uL Red Blood Count 4.29 M/uL Hemoglobin 13.2 g/dL Hematocrit 38.4 % Mean Corpuscular Volume 89.5 fL Mean Corpuscular Hemoglobin 30.8 pg Mean Corpuscular Hemoglobin Concent 34.4 g/dl RDW Standard Deviation 43.8 fL RDW Coefficient of Variation 13.4 % Platelet Count 280 K/uL Mean Platelet Volume 11.2 fL Sodium Level 138 mmol/L Potassium Level 3.7 mmol/L Chloride Level 105 mmol/L Carbon Dioxide Level 24 mmol/L Anion Gap 9.0 mmol/L Blood Urea Nitrogen 15 mg/dl Creatinine 0.57 mg/dl Est Creatinine Clear Calc Drug Dose 100.4 ml/min Estimated GFR () 106.6 Estimated GFR (Non- 92.0 BUN/Creatinine Ratio 25.7 Random Glucose 123 mg/dl Calcium Level 7.7 mg/dl Bedside Glucose 125 mg/dl 94 mg/dl Prothrombin Time 11.5 SECONDS Prothromb Time International Ratio 1.1 Test 03/04/17 20:34 03/05/17 06:47 03/05/17 07:18 Bedside Glucose 110 mg/dl 96 mg/dl White Blood Count 16.75 K/uL Red Blood Count 4.28 M/uL Hemoglobin 13.2 g/dL Hematocrit 38.2 % Mean Corpuscular Volume 89.3 fL Mean Corpuscular Hemoglobin 30.8 pg Mean Corpuscular Hemoglobin Concent 34.6 g/dl RDW Standard Deviation 44.4 fL RDW Coefficient of Variation 13.6 % Platelet Count 324 K/uL Mean Platelet Volume 11.6 fL Sodium Level 141 mmol/L Potassium Level 3.4 mmol/L Chloride Level 109 mmol/L Carbon Dioxide Level 22 mmol/L Anion Gap 10.0 mmol/L Blood Urea Nitrogen 13 mg/dl Creatinine 0.48 mg/dl Est Creatinine Clear Calc Drug Dose 118.6 ml/min Estimated GFR () 112.8 Estimated GFR (Non- 97.3 BUN/Creatinine Ratio 28.0 Random Glucose 99 mg/dl Calcium Level 7.9 mg/dl Assessment and Plan Patient is a 71 yo female who is hospitalized for diarrhea due to a C diff infection. 1) Continue Vancomycin 250 mg po four times daily x 10 days. 2) Continue Flagyl 500 mg IV q 8 hours while hospitalized as patient began improving with combination therapy. 3) Discussed with patient that once antibiotics are complete, will plan to implement Florastor 250 mg BID. 4) Diet as tolerated. 5) Supportive care and treatment of UTI per primary team. Thank you for allowing us to participate in the care of this patient. If you should have any further questions or concerns, do not hesitate to contact us. Agree with SHERIDAN Hernandez as above Abd: Soft, Tender throughout, ND, +BS Continue current therapy Continue supportive care
[2017-03-05] MEDS: CEFTRIAXONE SOD INJ 1 GM in DEXTROSE 5% ADD-VANTAGE 50ML 50 ML IV SCH (13:30)
[2017-03-05] MEDS: ONDANSETRON INJ 2 MG/ML 2 ML VIAL IV PRN (15:42)
[2017-03-05] MEDS: PROMETHAZINE HCL INJ 12.5 MG in SODIUM CHLORIDE 0.9% 50ML 50 ML IV PRN (20:02)
--- NOTE | 2017-03-05 20:16 | Progress Note ---
Medicine Progress Note Date & Time of Visit: Mar 05, 2017 at 10:03. Subjective Pt was seen and examined lying in bed with no distress continue to have diarrhea but improved She said that pain improved Denies any chest pain, palpitation, dizziness and SOB Objective Last 8 Hrs Date Time Temp Pulse Resp B/P (MAP) Pulse Ox O2 Delivery O2 Flow Rate FiO2 03/05/17 16:27 37.1 80 20 121/75 (90) 92 Room Air 03/05/17 16:00 Room Air Physical Exam: General- No acute distress Head- atraumatic Eyes- PERRL, EOMI ENT- oropharynx clear Neck- supple, no JVD Lungs- no wheezing Heart- no murmur Abdomen +Tenderness, soft Extremities- no calf tenderness Neuro- alert, oriented x 3; PERRL Skin- warm & dry Laboratory Results: Last 24 Hours Test 03/04/17 20:34 03/05/17 06:47 03/05/17 07:18 03/05/17 11:42 Bedside Glucose 110 mg/dl 96 mg/dl 87 mg/dl White Blood Count 16.75 K/uL Red Blood Count 4.28 M/uL Hemoglobin 13.2 g/dL Hematocrit 38.2 % Mean Corpuscular Volume 89.3 fL Mean Corpuscular Hemoglobin 30.8 pg Mean Corpuscular Hemoglobin Concent 34.6 g/dl RDW Standard Deviation 44.4 fL RDW Coefficient of Variation 13.6 % Platelet Count 324 K/uL Mean Platelet Volume 11.6 fL Sodium Level 141 mmol/L Potassium Level 3.4 mmol/L Chloride Level 109 mmol/L Carbon Dioxide Level 22 mmol/L Anion Gap 10.0 mmol/L Blood Urea Nitrogen 13 mg/dl Creatinine 0.48 mg/dl Est Creatinine Clear Calc Drug Dose 118.6 ml/min Estimated GFR () 112.8 Estimated GFR (Non- 97.3 BUN/Creatinine Ratio 28.0 Random Glucose 99 mg/dl Calcium Level 7.9 mg/dl Assessment & Plan C-DIFF COLITIS/DIARRHEA CT abdomen showed findings consistent with a nonspecific severe pancolitis Stool positive for Cdiff WBC on admission 18K, trending to 17K today febrile on admission lactic acid normal Gastro on board Recommended to continue flagyl IV and vanco po Continue IVF Continue clear liquid diet pain control Repeat abdominal xray Monitor for any abdominal distention or ileus. if occurs, will consult surgery 03/05 Continue to have diarrhea, but improved Continue IVF Try to avoid opioid Abdominal is not distended Xray of abd showed nonobstructive bowel gas pattern without pneumoperitoneum Continue Vanco oral and Flagyl WBC decreased Continue Vanco oral and IV flagyl Tolerated diet GI on board UTI UA positive for nitrite, small leukocytes urine cx grew gram negative bacilli, Klebsiella Pneumonia Continue Rocephin IV WBC trending down Monitor CBC DM II HBA1C 5.6 continue holding metformin Continue NovoLog sliding scale per protocol HTN BP in the low side Continue holding lisinopril Monitor BP Hypotension Mostly related to low volume/diarrhea Continue IVF Hold BP med Resolved HYPERLIPIDEMIA Stable HYPOTHYROIDISM On levothyroxine DEPRESSION On wellbutrin DVT PROPHYLAXIS SCDs Will start on Lovenox subq CODE STATUS FULL CODE DISPOSITION Continue monitor in tele Consultants: gastro Current Inpatient Medications: Current Inpatient Medications Medications (Trade) Dose Ordered Sig/Sejal Route Start Time Stop Time Status Last Admin Dose Admin Ioversol (Optiray 320) 100 ml UD PRN IV 03/02/17 18:30 03/06/17 18:29 Acetaminophen (Tylenol Tab) 650 mg Q4H PRN PO 03/02/17 22:15 04/01/17 22:14 03/03/17 16:38 650 MG Ondansetron HCl (Zofran Inj) 4 mg Q6H PRN IV 03/02/17 22:15 04/01/17 22:14 03/05/17 15:42 4 MG Nitroglycerin (Nitrostat Tab) 0.4 mg UD PRN SL 03/02/17 22:15 04/01/17 22:14 Metronidazole 500 mg/Prmx 100 ml @ 100 mls/hr Q8H IV 03/03/17 06:00 03/13/17 05:59 03/05/17 13:29 100 MLS/HR Insulin Aspart (novoLOG ASPART) SLIDING SCALE If C... ACHS SC 03/03/17 07:00 04/02/17 06:59 03/05/17 17:11 1 UNITS Glucose (Glucose 40% Gel) 15-30 GRAMS 15 GRAMS... UD PRN PO 03/02/17 22:30 04/01/17 22:29 Glucose (Glucose Chew Tab) 4-8 Tablets 4 Tabl... UD PRN PO 03/02/17 22:30 04/01/17 22:29 Dextrose (Dextrose 50% 50ML Syringe) 25-50ML OF 50% DW IV FOR... UD PRN IV 03/02/17 22:30 04/01/17 22:29 Glucagon (Glucagon Inj) 1 mg UD PRN SQ 03/02/17 22:30 04/01/17 22:29 Morphine Sulfate (MoRPHine SULFATE INJ) 2 mg Q4 PRN IV 03/02/17 22:30 03/16/17 22:29 03/04/17 20:49 2 MG Vancomycin HCl (Vancomycin Oral Soln) 250 mg QID PO 03/03/17 09:00 03/13/17 08:59 03/05/17 17:12 250 MG Bupropion HCl (Wellbutrin-Xl Tab) 150 mg QAM PO 03/03/17 09:00 04/02/17 08:59 03/05/17 08:24 150 MG Levothyroxine Sodium (Synthroid Tab) 175 mcg DAILYBB PO 03/03/17 06:00 04/02/17 05:59 03/05/17 06:27 175 MCG Raspberry (Raspberry Syrup 5ml Cup) 5 ml QID PO 03/03/17 09:00 03/17/17 08:59 03/05/17 17:14 5 ML Sodium Chloride 1,000 ml @ 80 mls/hr [id number] IV 03/03/17 16:30 04/02/17 16:29 03/05/17 13:29 80 MLS/HR Promethazine HCl 12.5 mg/Sodium Chloride 50.5 ml @ 204 mls/hr Q8 PRN IV 03/03/17 19:00 04/02/17 18:59 03/04/17 20:49 204 MLS/HR Ceftriaxone Sodium 1 gm/ Dextrose 50 ml @ 100 mls/hr DAILY@1400 IV 03/04/17 14:00 03/09/17 13:59 03/05/17 13:30 100 MLS/HR Enoxaparin Sodium (Lovenox Inj) 40 mg QAM SQ 03/05/17 09:00 04/04/17 08:59
[2017-03-05] MEDS ORDERED: POTASSIUM CHLORIDE 20 MEQ TABCR PO ONE (20:45)
[2017-03-06] MEDS ORDERED: LORAZEPAM 0.5 MG TAB PO STA (00:05)
[2017-03-06] MEDS ORDERED: CALCIUM CARBONATE 500 MG CHEWABLE PO STA (00:05)
[2017-03-06] MEDS: SODIUM CHLORIDE 0.9% 1000ML 1,000 ML IV SCH ×2 (02:26→14:03)
[2017-03-06] MEDS: LEVOTHYROXINE 175 MCG TAB PO SCH (06:10)
[2017-03-06] MEDS: METRONIDAZOLE / NSS 500 MG in PREMIXED NSS 100 ML IV SCH ×3 (06:10→21:29)
[2017-03-06] MEDS: INSULIN ASPART 100 UNITS/ML 3 ML PEN SC SCH ×4 (06:30→21:30)
[2017-03-06 08:00] VITALS: O2SAT 93
[2017-03-06 08:11] VITALS: BP 123/72; PULSE 88; TEMP 37; O2SAT 93
[2017-03-06 08:14] LABS: HEMATOCRIT 42.8 % (37-47); HEMOGLOBIN 14.6 g/dL (12.0-16.0); MEAN CELL VOLUME 88.6 fL (80-100); MEAN CORPUSCULAR HEMOGLOBIN 30.2 pg (25-34); MEAN CORPUSCULAR HGB CONC 34.1 g/dl (32-36); MEAN PLATELET VOLUME 11.1 fL (7.4-10.4); PLATELET COUNT 393 K/uL (130-400); RED CELL DISTRIBUTION WIDTH CV 13.7 % (11.5-14.5); RED CELL DISTRIBUTION WIDTH SD 44.8 fL (36.4-46.3); WHITE BLOOD COUNT 14.91 K/uL (4.8-10.8)
[2017-03-06 08:32] LABS: CALCIUM 8.5 mg/dl (8.5-10.1); CREATININE 0.63 mg/dl (0.60-1.20); POTASSIUM 3.5 mmol/L (3.5-5.1)
--- NOTE | 2017-03-06 08:57 | Gastroenterology Progress Note ---
Progress Note Date of Service: Mar 06, 2017 Subjective Pt evaluation today including: conversation w/ patient, physical exam, lab review, review of studies Patient is a 71 yo male who is hospitalized with C diff. She reports that she had a great day yesterday. She reports 5 loose stools. She denies further abdominal cramping. She reports she has started to eat again, however she is not able to eat her usual amount of food. She denies rectal bleeding. She offers no further complaints. Her WBC count continues to improve. She is currently being treated for a Klebsiella UTI. Review of Systems Constitutional: No fever, No chills Respiratory: No cough, No shortness of breath Cardiac: No chest pain Abdomen: + diarrhea, No pain, No nausea, No vomiting, No constipation, No GI bleeding Skin: No problem reported Medications Current Inpatient Medications Medications (Trade) Dose Ordered Sig/Sejal Route Start Time Stop Time Status Last Admin Dose Admin Ioversol (Optiray 320) 100 ml UD PRN IV 03/02/17 18:30 03/06/17 18:29 Acetaminophen (Tylenol Tab) 650 mg Q4H PRN PO 03/02/17 22:15 04/01/17 22:14 03/03/17 16:38 650 MG Ondansetron HCl (Zofran Inj) 4 mg Q6H PRN IV 03/02/17 22:15 04/01/17 22:14 03/05/17 15:42 4 MG Nitroglycerin (Nitrostat Tab) 0.4 mg UD PRN SL 03/02/17 22:15 04/01/17 22:14 Metronidazole 500 mg/Prmx 100 ml @ 100 mls/hr Q8H IV 03/03/17 06:00 03/13/17 05:59 03/06/17 06:10 100 MLS/HR Insulin Aspart (novoLOG ASPART) SLIDING SCALE If C... ACHS SC 03/03/17 07:00 04/02/17 06:59 03/05/17 17:11 1 UNITS Glucose (Glucose 40% Gel) 15-30 GRAMS 15 GRAMS... UD PRN PO 03/02/17 22:30 04/01/17 22:29 Glucose (Glucose Chew Tab) 4-8 Tablets 4 Tabl... UD PRN PO 03/02/17 22:30 04/01/17 22:29 Dextrose (Dextrose 50% 50ML Syringe) 25-50ML OF 50% DW IV FOR... UD PRN IV 03/02/17 22:30 04/01/17 22:29 Glucagon (Glucagon Inj) 1 mg UD PRN SQ 03/02/17 22:30 04/01/17 22:29 Morphine Sulfate (MoRPHine SULFATE INJ) 2 mg Q4 PRN IV 03/02/17 22:30 03/16/17 22:29 03/04/17 20:49 2 MG Vancomycin HCl (Vancomycin Oral Soln) 250 mg QID PO 03/03/17 09:00 03/13/17 08:59 03/05/17 20:02 250 MG Bupropion HCl (Wellbutrin-Xl Tab) 150 mg QAM PO 03/03/17 09:00 04/02/17 08:59 03/05/17 08:24 150 MG Levothyroxine Sodium (Synthroid Tab) 175 mcg DAILYBB PO 03/03/17 06:00 04/02/17 05:59 03/06/17 06:10 175 MCG Raspberry (Raspberry Syrup 5ml Cup) 5 ml QID PO 03/03/17 09:00 03/17/17 08:59 03/05/17 20:02 5 ML Sodium Chloride 1,000 ml @ 80 mls/hr [id number] IV 03/03/17 16:30 04/02/17 16:29 03/06/17 02:26 80 MLS/HR Promethazine HCl 12.5 mg/Sodium Chloride 50.5 ml @ 204 mls/hr Q8 PRN IV 03/03/17 19:00 04/02/17 18:59 03/05/17 20:02 204 MLS/HR Ceftriaxone Sodium 1 gm/ Dextrose 50 ml @ 100 mls/hr DAILY@1400 IV 03/04/17 14:00 03/09/17 13:59 03/05/17 13:30 100 MLS/HR Enoxaparin Sodium (Lovenox Inj) 40 mg QAM SQ 03/05/17 09:00 04/04/17 08:59 Objective Vital Signs Date Time Temp Pulse Resp B/P (MAP) Pulse Ox O2 Delivery O2 Flow Rate FiO2 03/06/17 08:11 37.0 88 20 123/72 (89) 93 Room Air 03/05/17 23:38 36.7 82 20 129/87 (101) 93 Room Air 03/05/17 23:00 93 Room Air 03/05/17 22:50 36.9 77 16 94 03/05/17 20:00 Room Air 03/05/17 20:00 36.9 77 16 135/80 (98) 94 Room Air 03/05/17 16:27 37.1 80 20 121/75 (90) 92 Room Air 03/05/17 16:00 Room Air 03/05/17 12:00 Room Air 03/05/17 11:19 36.9 71 19 119/75 (90) 94 Room Air Physical Exam General Appearance: WD/WN, no apparent distress Eyes: normal inspection, PERRL Respiratory/Chest: lungs clear, normal breath sounds Cardiovascular: regular rate, rhythm Abdomen: normal bowel sounds, non tender, soft Extremities: non-tender Neurologic/Psych: alert, oriented x 3 Skin: normal color Laboratory Results Last 24 Hours Test 03/05/17 11:42 03/05/17 16:29 03/05/17 20:38 03/06/17 07:34 Bedside Glucose 87 mg/dl 110 mg/dl 124 mg/dl 82 mg/dl Test 03/06/17 08:00 White Blood Count 14.91 K/uL Red Blood Count 4.83 M/uL Hemoglobin 14.6 g/dL Hematocrit 42.8 % Mean Corpuscular Volume 88.6 fL Mean Corpuscular Hemoglobin 30.2 pg Mean Corpuscular Hemoglobin Concent 34.1 g/dl RDW Standard Deviation 44.8 fL RDW Coefficient of Variation 13.7 % Platelet Count 393 K/uL Mean Platelet Volume 11.1 fL Sodium Level 140 mmol/L Potassium Level 3.5 mmol/L Chloride Level 109 mmol/L Carbon Dioxide Level 22 mmol/L Anion Gap 10.0 mmol/L Blood Urea Nitrogen 12 mg/dl Creatinine 0.63 mg/dl Est Creatinine Clear Calc Drug Dose 90.3 ml/min Estimated GFR () 103.1 Estimated GFR (Non- 89.0 BUN/Creatinine Ratio 18.6 Random Glucose 116 mg/dl Calcium Level 8.5 mg/dl Magnesium Level 1.9 mg/dl Assessment and Plan Patient is a 71 yo female who is hospitalized for diarrhea due to a C diff infection. 1) Continue Vancomycin 250 mg po four times daily x 10 days and Flagyl 500 mg IV q 8 hrs while hospitalized. 2) After antibiotic treatment complete, plan to initiate Florastor 250 mg BID. 4) Diet as tolerated. 5) Supportive care and treatment of UTI per primary team. Thank you for allowing us to participate in the care of this patient. If you should have any further questions or concerns, do not hesitate to contact us. Agree with SHERIDAN Hernandez as above Abd: Soft, NT, ND, +BS Continue current therapy She will followup in our office as outpatient. I informed her that she will remain infectious until her diarrhea resolves.
[2017-03-06] MEDS: RASPBERRY SYRUP 5 ML UDP PO SCH ×4 (09:00→21:28)
[2017-03-06] MEDS: BuPROPion XL 150 MG TABCR PO SCH (09:00)
[2017-03-06] MEDS: ENOXAPARIN 40 MG/0.4 ML SYR SQ SCH (09:00)
[2017-03-06] MEDS: VANCOMYCIN HCL 250 MG/5 ML SOLN PO SCH ×4 (09:00→21:27)
[2017-03-06] MEDS: CEFTRIAXONE SOD INJ 1 GM in DEXTROSE 5% ADD-VANTAGE 50ML 50 ML IV SCH (14:03)
--- NOTE | 2017-03-06 14:48 | Progress Note ---
Medicine Progress Note Date & Time of Visit: Mar 06, 2017 at 14:36. Subjective 71 yo F with c-diff colitis and UTI -denies abd pain or nausea -tolerating regular food such as mac n cheese today -4 BMs, denies BRBPR -denies dysuria or other UTI symptoms. Objective Last 8 Hrs Date Time Temp Pulse Resp B/P (MAP) Pulse Ox O2 Delivery O2 Flow Rate FiO2 03/06/17 08:11 37.0 88 20 123/72 (89) 93 Room Air 03/06/17 08:00 93 Room Air Physical Exam: GEN: WNWD, in no acute distress, alert and appropriate HEENT: NC/AT, normal sclerae, MMM CARDIO: reg rate, S1/2 heard without m/g/r LUNGS: CTA bilaterally, no crackles, rales or wheezes, good diaphragmatic excursion ABD: soft, diffuse TTP more in upper quadrants, non-distended, no rebound or guarding, no CVA tenderness, +BS EXTREMITY: RP and DP palpable 2+ bilat, no LE swelling or edema, extremities are warm and well-perfused NEURO: CN 2-12 grossly intact MUSC: 5/5 strength throughout, no gross focal deficits SKIN: warm and dry Laboratory Results: 03/06/17 08:00 03/06/17 08:00 Test 03/02/17 18:20 03/02/17 23:27 03/03/17 02:56 03/03/17 05:50 Direct Bilirubin 0.2 mg/dl (0-0.2) Lipase 50 U/L (73-393) Thyroid Stimulating Hormone (TSH) 6.500 uIu/ml (0.300-4.500) Lactic Acid Level 1.1 mmol/L (0.4-2.0) Urine Color ORANGE Urine Appearance CLOUDY (CLEAR) Urine pH 5.5 (4.5-7.5) Urine Specific [place] 1.027 (1.000-1.030) Urine Protein 1+ (NEG) Urine Glucose (UA) NEG (NEG) Urine Ketones 1+ (NEG) Urine Occult Blood NEG (NEG) Urine Nitrite POS (NEG) Urine Bilirubin NEG (NEG) Urine Urobilinogen NEG (NEG) Urine Leukocyte Esterase SMALL (NEG) Urine WBC (Auto) 5-10 /hpf (0-5) Urine RBC (Auto) 0-4 /hpf (0-4) Urine Hyaline Casts (Auto) 5-10 /lpf (0-5) Urine Epithelial Cells (Auto) >30 /lpf (0-5) Urine Bacteria (Auto) 1+ (NEG) Urine Mucus PRESENT (NONE PRSENT) Urine Yeast (Auto) PRESENT (NONE PRSENT) Immature Granulocyte % (Auto) 0.5 % White Blood Count 17.39 K/uL (4.8-10.8) Red Blood Count 4.22 M/uL (4.2-5.4) Hemoglobin 12.8 g/dL (12.0-16.0) Hematocrit 38.0 % (37-47) Mean Corpuscular Volume 90.0 fL (80-100) Mean Corpuscular Hemoglobin 30.3 pg (25-34) Mean Corpuscular Hemoglobin Concent 33.7 g/dl (32-36) Platelet Count 251 K/uL (130-400) Mean Platelet Volume 11.8 fL (7.4-10.4) Neutrophils (%) (Auto) 82.0 % Lymphocytes (%) (Auto) 6.3 % Monocytes (%) (Auto) 10.9 % Eosinophils (%) (Auto) 0.1 % Basophils (%) (Auto) 0.2 % Neutrophils # (Auto) 14.27 K/uL (1.4-6.5) Lymphocytes # (Auto) 1.09 K/uL (1.2-3.4) Monocytes # (Auto) 1.90 K/uL (0.11-0.59) Eosinophils # (Auto) 0.01 K/uL (0-0.5) Basophils # (Auto) 0.03 K/uL (0-0.2) Immature Granulocyte # (Auto) 0.09 K/uL (0.00-0.02) Estimated Average Glucose 114 mg/dl Hemoglobin A1c 5.6 % (4.5-5.6) Total Bilirubin 0.6 mg/dl (0.2-1) Aspartate Amino Transf (AST/SGOT) 9 U/L (15-37) Alanine Aminotransferase (ALT/SGPT) 11 U/L (12-78) Alkaline Phosphatase 47 U/L (45-117) Total Protein 4.7 gm/dl (6.4-8.2) Albumin 1.9 gm/dl (3.4-5.0) Globulin 2.8 gm/dl (2.5-4.0) Albumin/Globulin Ratio 0.7 (0.9-2) Test 03/04/17 15:27 03/06/17 07:34 03/06/17 08:00 Prothrombin Time 11.5 SECONDS (9.0-12.0) Prothromb Time International Ratio 1.1 (0.9-1.1) Bedside Glucose 82 mg/dl (70-90) Red Blood Count 4.83 M/uL (4.2-5.4) Mean Corpuscular Volume 88.6 fL (80-100) Mean Corpuscular Hemoglobin 30.2 pg (25-34) Mean Corpuscular Hemoglobin Concent 34.1 g/dl (32-36) RDW Standard Deviation 44.8 fL (36.4-46.3) RDW Coefficient of Variation 13.7 % (11.5-14.5) Mean Platelet Volume 11.1 fL (7.4-10.4) Anion Gap 10.0 mmol/L (3-11) Est Creatinine Clear Calc Drug Dose 90.3 ml/min Estimated GFR () 103.1 Estimated GFR (Non- 89.0 BUN/Creatinine Ratio 18.6 (10-20) Calcium Level 8.5 mg/dl (8.5-10.1) Magnesium Level 1.9 mg/dl (1.8-2.4) Date/Time Source Procedure Growth Status 03/02/17 23:35 Blood Blood Culture - Preliminary NO GROWTH TO DATE. Resulted 03/03/17 02:56 Urine , Clean Catch Urine Culture - Final Klebsiella Pneumoniae Complete Last 24 Hours Test 03/05/17 16:29 03/05/17 20:38 03/06/17 07:34 03/06/17 08:00 Bedside Glucose 110 mg/dl 124 mg/dl 82 mg/dl White Blood Count 14.91 K/uL Red Blood Count 4.83 M/uL Hemoglobin 14.6 g/dL Hematocrit 42.8 % Mean Corpuscular Volume 88.6 fL Mean Corpuscular Hemoglobin 30.2 pg Mean Corpuscular Hemoglobin Concent 34.1 g/dl RDW Standard Deviation 44.8 fL RDW Coefficient of Variation 13.7 % Platelet Count 393 K/uL Mean Platelet Volume 11.1 fL Sodium Level 140 mmol/L Potassium Level 3.5 mmol/L Chloride Level 109 mmol/L Carbon Dioxide Level 22 mmol/L Anion Gap 10.0 mmol/L Blood Urea Nitrogen 12 mg/dl Creatinine 0.63 mg/dl Est Creatinine Clear Calc Drug Dose 90.3 ml/min Estimated GFR () 103.1 Estimated GFR (Non- 89.0 BUN/Creatinine Ratio 18.6 Random Glucose 116 mg/dl Calcium Level 8.5 mg/dl Magnesium Level 1.9 mg/dl Assessment & Plan 71 yo F with c-diff colitis and UTI 1. C-diff colitis-BM has improved to 4 today. She is doing well on food with today being Day 1. Encouraged her to avoid excessive caffiene and dairy as these may be bowel irritants and contribute to her diarrhea. Cont Flagyl and Vanc at current doses per GI team. Some pain on exam, pain meds as appropriate. 2. DMII-controlled, cont ISS while inpatient. 3. HTN-BP improved from 90s systolic. Will cont to hold lisinopril for now. 4. Hypothyroidism-cont Synthroid 5. Depression-cont Welbutrin 6. CT abnormality on ovaries-pelvic us recommended as outpatient within the next two weeks. Will need to speak with Dr. Aldana's office to communicate this closer to discharge. Pt verbalized understanding of the importance of continuing the workup here. 7. Leukocytosis 2/2 #1-improved today to 14K on current therapy. DVT proph-Lovenox. Full Code Dispo: home when tolerating PO and clinically more improved. Will order PT/OT to ensure she is safe to return home. Catie Nicole DO [facility] Hospitalist Consultants: gastro Current Inpatient Medications: Current Inpatient Medications Medications (Trade) Dose Ordered Sig/Sejal Route Start Time Stop Time Status Last Admin Dose Admin Ioversol (Optiray 320) 100 ml UD PRN IV 03/02/17 18:30 03/06/17 18:29 Acetaminophen (Tylenol Tab) 650 mg Q4H PRN PO 03/02/17 22:15 04/01/17 22:14 03/03/17 16:38 650 MG Ondansetron HCl (Zofran Inj) 4 mg Q6H PRN IV 03/02/17 22:15 04/01/17 22:14 03/05/17 15:42 4 MG Nitroglycerin (Nitrostat Tab) 0.4 mg UD PRN SL 03/02/17 22:15 04/01/17 22:14 Metronidazole 500 mg/Prmx 100 ml @ 100 mls/hr Q8H IV 03/03/17 06:00 03/13/17 05:59 03/06/17 14:03 100 MLS/HR Insulin Aspart (novoLOG ASPART) SLIDING SCALE If C... ACHS SC 03/03/17 07:00 04/02/17 06:59 03/05/17 17:11 1 UNITS Glucose (Glucose 40% Gel) 15-30 GRAMS 15 GRAMS... UD PRN PO 03/02/17 22:30 04/01/17 22:29 Glucose (Glucose Chew Tab) 4-8 Tablets 4 Tabl... UD PRN PO 03/02/17 22:30 04/01/17 22:29 Dextrose (Dextrose 50% 50ML Syringe) 25-50ML OF 50% DW IV FOR... UD PRN IV 03/02/17 22:30 04/01/17 22:29 Glucagon (Glucagon Inj) 1 mg UD PRN SQ 03/02/17 22:30 04/01/17 22:29 Morphine Sulfate (MoRPHine SULFATE INJ) 2 mg Q4 PRN IV 03/02/17 22:30 03/16/17 22:29 03/04/17 20:49 2 MG Vancomycin HCl (Vancomycin Oral Soln) 250 mg QID PO 03/03/17 09:00 03/13/17 08:59 03/06/17 12:20 250 MG Bupropion HCl (Wellbutrin-Xl Tab) 150 mg QAM PO 03/03/17 09:00 04/02/17 08:59 03/06/17 09:00 150 MG Levothyroxine Sodium (Synthroid Tab) 175 mcg DAILYBB PO 03/03/17 06:00 04/02/17 05:59 03/06/17 06:10 175 MCG Raspberry (Raspberry Syrup 5ml Cup) 5 ml QID PO 03/03/17 09:00 03/17/17 08:59 03/06/17 12:20 5 ML Sodium Chloride 1,000 ml @ 80 mls/hr [id number] IV 03/03/17 16:30 04/02/17 16:29 03/06/17 14:03 80 MLS/HR Promethazine HCl 12.5 mg/Sodium Chloride 50.5 ml @ 204 mls/hr Q8 PRN IV 03/03/17 19:00 04/02/17 18:59 03/05/17 20:02 204 MLS/HR Ceftriaxone Sodium 1 gm/ Dextrose 50 ml @ 100 mls/hr DAILY@1400 IV 03/04/17 14:00 03/09/17 13:59 03/06/17 14:03 100 MLS/HR Enoxaparin Sodium (Lovenox Inj) 40 mg QAM SQ 03/05/17 09:00 04/04/17 08:59
[2017-03-06 15:20] VITALS: BP 115/74; PULSE 72; TEMP 37.4; O2SAT 93
[2017-03-06 16:00] VITALS: O2SAT 95
[2017-03-06 20:16] VITALS: O2SAT 93
[2017-03-06] MEDS: CIPROFLOXACIN 500 MG TAB PO SCH (21:28)
[2017-03-06 23:48] VITALS: BP 139/88; PULSE 89; TEMP 36.7; O2SAT 92
[2017-03-07 00:02] VITALS: O2SAT 93
[2017-03-07] MEDS: METRONIDAZOLE / NSS 500 MG in PREMIXED NSS 100 ML IV SCH ×3 (05:49→21:39)
[2017-03-07] MEDS: LEVOTHYROXINE 175 MCG TAB PO SCH (05:49)
[2017-03-07 07:14] VITALS: BP 113/72; PULSE 79; TEMP 37.3; O2SAT 93
[2017-03-07] MEDS: VANCOMYCIN HCL 250 MG/5 ML SOLN PO SCH ×4 (08:33→20:34)
[2017-03-07] MEDS: CIPROFLOXACIN 500 MG TAB PO SCH ×2 (08:33→20:34)
[2017-03-07] MEDS: RASPBERRY SYRUP 5 ML UDP PO SCH ×4 (08:33→20:34)
[2017-03-07] MEDS: INSULIN ASPART 100 UNITS/ML 3 ML PEN SC SCH ×4 (08:33→21:39)
[2017-03-07] MEDS: BuPROPion XL 150 MG TABCR PO SCH (08:33)
[2017-03-07] MEDS: ENOXAPARIN 40 MG/0.4 ML SYR SQ SCH (08:34)
[2017-03-07 17:07] VITALS: BP 110/75; PULSE 76; TEMP 37.2; O2SAT 92
[2017-03-07 21:29] VITALS: O2SAT 93
--- NOTE | 2017-03-07 22:02 | Progress Note ---
Medicine Progress Note Date & Time of Visit: Mar 07, 2017 at 15:23. Subjective -tolerating PO -abdominal pain has improved -no fevers or chills -ambulatory and independent -two BMs semi-loose today -overall improved Objective Last 8 Hrs Date Time Temp Pulse Resp B/P (MAP) Pulse Ox O2 Delivery O2 Flow Rate FiO2 03/07/17 08:45 Room Air Physical Exam: GEN: WNWD, in no acute distress, alert and appropriate HEENT: NC/AT, normal sclerae, MMM CARDIO: reg rate, S1/2 heard without m/g/r LUNGS: CTA bilaterally, no crackles, rales or wheezes, good diaphragmatic excursion ABD: soft, non-tender, non-distended, no rebound or guarding, hypoactive +BS EXTREMITY: RP and DP palpable 2+ bilat, no LE swelling or edema, extremities are warm and well-perfused NEURO: CN 2-12 grossly intact MUSC: 5/5 strength throughout, no gross focal deficits SKIN: warm and dry Laboratory Results: 03/06/17 08:00 03/06/17 08:00 Test 03/02/17 18:20 03/02/17 23:27 03/03/17 02:56 03/03/17 05:50 Direct Bilirubin 0.2 mg/dl (0-0.2) Lipase 50 U/L (73-393) Thyroid Stimulating Hormone (TSH) 6.500 uIu/ml (0.300-4.500) Lactic Acid Level 1.1 mmol/L (0.4-2.0) Urine Color ORANGE Urine Appearance CLOUDY (CLEAR) Urine pH 5.5 (4.5-7.5) Urine Specific [place] 1.027 (1.000-1.030) Urine Protein 1+ (NEG) Urine Glucose (UA) NEG (NEG) Urine Ketones 1+ (NEG) Urine Occult Blood NEG (NEG) Urine Nitrite POS (NEG) Urine Bilirubin NEG (NEG) Urine Urobilinogen NEG (NEG) Urine Leukocyte Esterase SMALL (NEG) Urine WBC (Auto) 5-10 /hpf (0-5) Urine RBC (Auto) 0-4 /hpf (0-4) Urine Hyaline Casts (Auto) 5-10 /lpf (0-5) Urine Epithelial Cells (Auto) >30 /lpf (0-5) Urine Bacteria (Auto) 1+ (NEG) Urine Mucus PRESENT (NONE PRSENT) Urine Yeast (Auto) PRESENT (NONE PRSENT) Immature Granulocyte % (Auto) 0.5 % White Blood Count 17.39 K/uL (4.8-10.8) Red Blood Count 4.22 M/uL (4.2-5.4) Hemoglobin 12.8 g/dL (12.0-16.0) Hematocrit 38.0 % (37-47) Mean Corpuscular Volume 90.0 fL (80-100) Mean Corpuscular Hemoglobin 30.3 pg (25-34) Mean Corpuscular Hemoglobin Concent 33.7 g/dl (32-36) Platelet Count 251 K/uL (130-400) Mean Platelet Volume 11.8 fL (7.4-10.4) Neutrophils (%) (Auto) 82.0 % Lymphocytes (%) (Auto) 6.3 % Monocytes (%) (Auto) 10.9 % Eosinophils (%) (Auto) 0.1 % Basophils (%) (Auto) 0.2 % Neutrophils # (Auto) 14.27 K/uL (1.4-6.5) Lymphocytes # (Auto) 1.09 K/uL (1.2-3.4) Monocytes # (Auto) 1.90 K/uL (0.11-0.59) Eosinophils # (Auto) 0.01 K/uL (0-0.5) Basophils # (Auto) 0.03 K/uL (0-0.2) Immature Granulocyte # (Auto) 0.09 K/uL (0.00-0.02) Estimated Average Glucose 114 mg/dl Hemoglobin A1c 5.6 % (4.5-5.6) Total Bilirubin 0.6 mg/dl (0.2-1) Aspartate Amino Transf (AST/SGOT) 9 U/L (15-37) Alanine Aminotransferase (ALT/SGPT) 11 U/L (12-78) Alkaline Phosphatase 47 U/L (45-117) Total Protein 4.7 gm/dl (6.4-8.2) Albumin 1.9 gm/dl (3.4-5.0) Globulin 2.8 gm/dl (2.5-4.0) Albumin/Globulin Ratio 0.7 (0.9-2) Test 03/04/17 15:27 03/06/17 08:00 03/07/17 11:08 Prothrombin Time 11.5 SECONDS (9.0-12.0) Prothromb Time International Ratio 1.1 (0.9-1.1) Red Blood Count 4.83 M/uL (4.2-5.4) Mean Corpuscular Volume 88.6 fL (80-100) Mean Corpuscular Hemoglobin 30.2 pg (25-34) Mean Corpuscular Hemoglobin Concent 34.1 g/dl (32-36) RDW Standard Deviation 44.8 fL (36.4-46.3) RDW Coefficient of Variation 13.7 % (11.5-14.5) Mean Platelet Volume 11.1 fL (7.4-10.4) Anion Gap 10.0 mmol/L (3-11) Est Creatinine Clear Calc Drug Dose 90.3 ml/min Estimated GFR () 103.1 Estimated GFR (Non- 89.0 BUN/Creatinine Ratio 18.6 (10-20) Calcium Level 8.5 mg/dl (8.5-10.1) Magnesium Level 1.9 mg/dl (1.8-2.4) Bedside Glucose 128 mg/dl (70-90) Date/Time Source Procedure Growth Status 03/02/17 23:35 Blood Blood Culture - Preliminary NO GROWTH TO DATE. Resulted 03/03/17 02:56 Urine , Clean Catch Urine Culture - Final Klebsiella Pneumoniae Complete Last 24 Hours Test 03/06/17 16:31 03/06/17 20:42 03/07/17 07:31 03/07/17 11:08 Bedside Glucose 109 mg/dl 131 mg/dl 106 mg/dl 128 mg/dl Assessment & Plan 71 yo F with c-diff colitis and UTI 1. C-diff colitis-BM has improved to 4 today. She is doing well on food with today being Day 2. Encouraged her to avoid excessive caffeine and dairy as these may be bowel irritants and contribute to her diarrhea. Cont Flagyl and Vanc at current doses per GI team. Some pain on exam, pain meds as appropriate. 2. DMII-controlled, cont ISS while inpatient. 3. HTN-BP improved from 90s systolic. Will cont to hold lisinopril for now. 4. Hypothyroidism-cont Synthroid 5. Depression-cont Welbutrin 6. CT abnormality on ovaries-pelvic us recommended as outpatient within the next two weeks. Will need to speak with Dr. Aldana's office to communicate this closer to discharge. Pt verbalized understanding of the importance of continuing the workup here. 7. Leukocytosis 2/2 #1-improved DVT proph-Lovenox. Full Code Dispo: home when tolerating PO and clinically more improved. Will order PT/OT to ensure she is safe to return home. DO Yehuda Jacobs Hospitalist Consultants: GI Current Inpatient Medications: Current Inpatient Medications Medications (Trade) Dose Ordered Sig/Sejal Route Start Time Stop Time Status Last Admin Dose Admin Acetaminophen (Tylenol Tab) 650 mg Q4H PRN PO 03/02/17 22:15 04/01/17 22:14 03/03/17 16:38 650 MG Ondansetron HCl (Zofran Inj) 4 mg Q6H PRN IV 03/02/17 22:15 04/01/17 22:14 03/05/17 15:42 4 MG Nitroglycerin (Nitrostat Tab) 0.4 mg UD PRN SL 03/02/17 22:15 04/01/17 22:14 Metronidazole 500 mg/Prmx 100 ml @ 100 mls/hr Q8H IV 03/03/17 06:00 03/13/17 05:59 03/07/17 13:51 100 MLS/HR Insulin Aspart (novoLOG ASPART) SLIDING SCALE If C... ACHS SC 03/03/17 07:00 04/02/17 06:59 03/05/17 17:11 1 UNITS Glucose (Glucose 40% Gel) 15-30 GRAMS 15 GRAMS... UD PRN PO 03/02/17 22:30 04/01/17 22:29 Glucose (Glucose Chew Tab) 4-8 Tablets 4 Tabl... UD PRN PO 03/02/17 22:30 04/01/17 22:29 Dextrose (Dextrose 50% 50ML Syringe) 25-50ML OF 50% DW IV FOR... UD PRN IV 03/02/17 22:30 04/01/17 22:29 Glucagon (Glucagon Inj) 1 mg UD PRN SQ 03/02/17 22:30 04/01/17 22:29 Morphine Sulfate (MoRPHine SULFATE INJ) 2 mg Q4 PRN IV 03/02/17 22:30 03/16/17 22:29 03/04/17 20:49 2 MG Vancomycin HCl (Vancomycin Oral Soln) 250 mg QID PO 03/03/17 09:00 03/13/17 08:59 03/07/17 12:29 250 MG Bupropion HCl (Wellbutrin-Xl Tab) 150 mg QAM PO 03/03/17 09:00 04/02/17 08:59 03/07/17 08:33 150 MG Levothyroxine Sodium (Synthroid Tab) 175 mcg DAILYBB PO 03/03/17 06:00 04/02/17 05:59 03/07/17 05:49 175 MCG Raspberry (Raspberry Syrup 5ml Cup) 5 ml QID PO 03/03/17 09:00 03/17/17 08:59 03/07/17 12:29 5 ML Promethazine HCl 12.5 mg/Sodium Chloride 50.5 ml @ 204 mls/hr Q8 PRN IV 03/03/17 19:00 04/02/17 18:59 03/05/17 20:02 204 MLS/HR Enoxaparin Sodium (Lovenox Inj) 40 mg QAM SQ 03/07/17 09:00 04/06/17 08:59 Ciprofloxacin (Cipro Tab) 500 mg BID PO 03/06/17 21:00 03/08/17 12:00 03/07/17 08:33 500 MG
[2017-03-07 23:08] VITALS: BP 118/72; PULSE 76; TEMP 36.8; O2SAT 92
[2017-03-08] MEDS: LEVOTHYROXINE 175 MCG TAB PO SCH (06:16)
[2017-03-08] MEDS: METRONIDAZOLE / NSS 500 MG in PREMIXED NSS 100 ML IV SCH ×2 (06:16→13:48)
[2017-03-08 08:15] VITALS: BP 113/74; PULSE 74; TEMP 36.6; O2SAT 93
[2017-03-08] MEDS: INSULIN ASPART 100 UNITS/ML 3 ML PEN SC SCH ×2 (08:20→11:50)
[2017-03-08] MEDS: RASPBERRY SYRUP 5 ML UDP PO SCH ×2 (08:23→12:45)
[2017-03-08] MEDS: ENOXAPARIN 40 MG/0.4 ML SYR SQ SCH (08:24)
[2017-03-08] MEDS: VANCOMYCIN HCL 250 MG/5 ML SOLN PO SCH ×2 (08:24→12:45)
[2017-03-08] MEDS: BuPROPion XL 150 MG TABCR PO SCH (08:24)
[2017-03-08] MEDS: CIPROFLOXACIN 500 MG TAB PO SCH (08:24)
[2017-03-08] MEDS ORDERED: VANC1CAP3 PO (15:19)
[2017-03-08] MEDS ORDERED: SACC250C PO (15:19)
[2017-03-08 15:23] VITALS: BP 123/80; PULSE 74; TEMP 37.1; O2SAT 93
--- NOTE | 2017-03-08 15:24 | Discharge Instructions ---
Discharge Instructions Date of Service Mar 08, 2017. Admission Reason for Admission: C. Difficile Colitis Discharge Discharge Diagnosis / Problem: C-difficile colitis, UTI Discharge Goals Goal(s): Therapeutic intervention, Prevent Disease Progression Activity Recommendations Activity Limitations: per Instructions/Follow-up section . Instructions / Follow-Up Instructions / Follow-Up Please take all medications as instructed. You were given 5 more days of Vancomycin (antibiotic) to complete the 10 day course. Please start the Florastor probiotic twice daily after finishing the antibiotics. You were found to have enlarged, heterogeneous, and hyperdense ovaries on a CT scan while you were admitted. An outpatient pelvic ultrasound is recommended within the next two weeks to follow this up. This can be ordered through Dr. Aldana's office. You have a follow-up appointment with Dr. Aldana on 03/20 @ 2:00 for follow-up from this hospitalization. It was a pleasure taking care of you! Call if you have any questions or problems. You can reach a [facility] hospitalist on duty at [facility] 24 hours a day by calling [phone]. Take care of yourself. Catie Nicole DO [facility] Hospitalist Current Hospital Diet Patient's current hospital diet: Diabetes Type 2 Diet Discharge Diet Recommended Diet: Diabetes Type 2 Diet Procedures Procedures Performed: None. Pending Studies Studies pending at discharge: no Laboratory Results Hemoglobin A1c Test 03/03/17 05:50 Range/Units Estimated Average Glucose 114 mg/dl Hemoglobin A1c 5.6 4.5-5.6 % Medical Emergencies . Who to Call and When: Medical Emergencies: If at any time you feel your situation is an emergency, please call 911 immediately. . Non-Emergent Contact Non-Emergency issues call your: Primary Care Provider . . "Provider Documentation" section prepared by Catie Nicole. . VTE Core Measure Inpt VTE Proph given/why not?: Enoxaparin (Lovenox)SQ, SCD's
[2017-03-08 15:32] VITALS: BP 123/80; PULSE 74; TEMP 37.1; O2SAT 93
--- NOTE | 2017-03-08 15:43 | Discharge Summary ---
Discharge Summary Date of Service Mar 08, 2017. Discharge Summary Admission Date: Mar 02, 2017 at 22:18 Discharge Date: Mar 08, 2017 Discharge Disposition: Home Principal Diagnosis: c-diff colitis DMII HTN Hyperlipidemia Hypothyroidism Depression Abnormality of ovaries Leukocytosis Procedures: None. Vaccinations: Pneumovax Consultations: GI Pending Studies/Follow-Up: see instructions below. Medication Reconciliation New Medications: Saccharomyces Boulardii (Florastor) 250 Mg Cap 250 MG PO BID for 30 Days, #60 CAP start taking after completing antibiotic therapy. Vancomycin Hcl (Vancomycin) 250 Mg Cap 250 MG PO QID for 5 Days, #20 CAP Continued Medications: Atorvastatin (Lipitor) 20 Mg Tab 20 MG PO QPM, TAB B-Complex Vitamins (Vitamin B Complex) 1 Tab Tab 1 TAB PO QAM Bupropion Hcl (Wellbutrin Xl) 150 Mg Tab 1 TAB PO QAM, TAB Cyanocobalamin (Vitamin B-12) 100 Mcg Tab 100 MCG PO DAILY, TAB Ergocalciferol (Vitamin D 57547 Unit) 50,000 Unit Cap 70946 UNIT PO WK, CAP Levothyroxine Sodium (Synthroid) 175 Mcg Tab 175 MCG PO QAM, TAB Lisinopril (Zestril) 2.5 Mg Tab 1 TAB PO Q2D Metformin Hcl (Glucophage) 500 Mg Tab 500 MG PO DAILY, TAB [place]-3 Fatty Acids (Fish Oil) 1 Cap Cap 1 CAP PO QAM Discontinued Medications: Dicyclomine HCl (Dicyclomine HCl) 1 Ea Cap 10 MG PO Q6 PRN for ABD PAIN Admission Information HPI (per Admitting provider): Pt is 71 y/o F with PMH HTN, DM II, hypothyroidism, dyslipidemia presented to ER with c/o abdominal pain x 3-4 weeks. Pt states past 3 weeks with abdominal pain. Started across lower abdomen but past several days with diffuse abdominal aching and pressure sensation. C/O diarrhea x 3-4 weeks with 3-9 episodes daily. Tried Kaopectate without relief. Pt states was seen by [facility] yesterday and had c-diff and Rx Bentyl. She feels abdominal pain worsened and presented to ER today. C-diff results positive today.Dubois chilled today. She states sometimes noticed darker brown/black color stool and sometimes brown color. Denies hematochezia. Denies hx C-diff or around ill contact. Reports was on 2 antibiotics for sinusitis in 12/2016. Pt unsure of names but thinks may have been Levaquin and Flagyl? In ER temp: 37.6, P: 107 to 83, BP: 91/51 to 104/52. R: 20, 94% on 2L. WBC: 18.5. CT abd/pelvis: non-specific pancolitis. Pt given 1L NSS, zofran 4mg IV, dilaudid 0.5mg IV. GI consulted recommend vanco 125mg po and flagyl 500mg IV which was started in ER. Physical Exam (per Admitting): General Appearance: WD/WN, no apparent distress Head: normocephalic, atraumatic Eyes: normal inspection, PERRL, EOMI, sclerae normal ENT: hearing grossly normal, pharynx normal, + pertinent finding (mildly dry mucous membranes) Neck: supple, no JVD, trachea midline Respiratory/Chest: chest non-tender, lungs clear, normal breath sounds, no respiratory distress, no accessory muscle use Cardiovascular: regular rate, rhythm, no edema, no murmur, normal peripheral pulses Abdomen/GI: normal bowel sounds, soft, + pertinent finding (diffuse tenderness to palpation without rebound or guarding) Back: no CVA tenderness Extremities/Musculoskelatal: normal inspection, normal capillary refill, no pedal edema, normal range of motion Neurologic/Psych: alert, normal mood/affect, oriented x 3 Skin: normal color, warm/dry Hospital Course The patient presented to the ER with abdominal pain for 3 weeks that was worse after a trial of Bentyl. She was hemodynamically stable and afebrile with a soft, non-distended abdomen with mild diffuse tenderness. A CT scan of the abdomen and pelvis without IV contrast revealed a nonspecific severe pancolitis and she was found to be c-diff positive. There was also a small volume of abdominopelvic ascites that was thought to be reactive. Her ovaries also appeared enlarged, heterogeneous and hyperdense and a pelvic ultrasound was recommended for further assessment. WBC count was noted to be 18K. As her appetite was also poor, she was admitted to the hospital and started on IV Flagyl and Vancomycin PO. She was also found to have a UTI and was empirically placed on Rocephin pending urine culture which grew Klebsiella sensitive to Cipro. She was switched to Cipro and had completed her course prior to discharge. Gastroenterology was consulted (Dr. Michoacano Pisano). Over the next few days her appetite returned and abdominal pain decreased. At the time of discharge she was mentating and ambulating at baseline and was afebrile and hemodynamically stable. She was tolerating PO and abdominal exam was benign with good bowel sounds, and abdomen soft and non-distended without tenderness to palpation. She was discharged in stable condition with close follow-up with PCP who can order the pelvic ultrasound as outpatient. Total time spent on discharge = 60 minutes This includes examination of the patient, discharge planning, medication reconciliation, and communication with other providers. Discharge Instructions [address] [address] Discharge Medical Patient Name: Maryse Lomeli Unit Number: [id number] Date of : 1945 Patient Status: Admitted Inpatient Attending Doctor: Catie Nicole DO DI: Medical v4 Discharge Instructions Date of Service Mar 08, 2017. Admission Reason for Admission: C. Difficile Colitis Discharge Discharge Diagnosis / Problem: C-difficile colitis, UTI Discharge Goals Goal(s): Therapeutic intervention, Prevent Disease Progression Activity Recommendations Activity Limitations: per Instructions/Follow-up section . Instructions / Follow-Up Instructions / Follow-Up Please take all medications as instructed. You were given 5 more days of Vancomycin (antibiotic) to complete the 10 day course. Please start the Florastor probiotic twice daily after finishing the antibiotics. You were found to have enlarged, heterogeneous, and hyperdense ovaries on a CT scan while you were admitted. An outpatient pelvic ultrasound is recommended within the next two weeks to follow this up. This can be ordered through Dr. Aldana's office. You have a follow-up appointment with Dr. Aldana on 03/20 @ 2:00 for follow-up from this hospitalization. It was a pleasure taking care of you! Call if you have any questions or problems. You can reach a [facility] hospitalist on duty at [facility] 24 hours a day by calling [phone]. Take care of yourself. DO [facility] Current Hospital Diet Patient's current hospital diet: Diabetes Type 2 Diet Discharge Diet Recommended Diet: Diabetes Type 2 Diet Procedures Procedures Performed: None. Pending Studies Studies pending at discharge: no Laboratory Results Hemoglobin A1c Test 03/03/17 05:50 Range/Units Estimated Average Glucose 114 mg/dl Hemoglobin A1c 5.6 4.5-5.6 % Medical Emergencies . Who to Call and When: Medical Emergencies: If at any time you feel your situation is an emergency, please call 911 immediately. . Non-Emergent Contact Non-Emergency issues call your: Primary Care Provider . . "Provider Documentation" section prepared by Catie Nicole. . VTE Core Measure Inpt VTE Proph given/why not?: Enoxaparin (Lovenox)SQ, SCD's Additional Copies To Shahida Aldana M.D.
== END 2017-03-08 16:20 | disposition home or self-care (01) | DRG 372 ==
LOC: C.EDB 17:51 → C.2T 22:18 → ENRESERV 22:26 → C.MS2W 03-05 23:03
PROVIDERS: ADMIT Internal Medicine; ATTEND Hospitalist
DX: A04.72 Enterocolitis due to Clostridium difficile, not specified as recurrent (principal); N39.0 Urinary tract infection, site not specified; E11.9 Type 2 diabetes mellitus without complications; I10 Essential (primary) hypertension; E78.5 Hyperlipidemia, unspecified; E03.9 Hypothyroidism, unspecified; F32.9 Major depressive disorder, single episode, unspecified; Z79.84 Long term (current) use of oral hypoglycemic drugs; Z79.899 Other long term (current) drug therapy; Z87.891 Personal history of nicotine dependence

== ENCOUNTER → 2017-03-02 | Outpatient (CLI) | payer BC ==
[~2017-03-02] MED LIST: ATOR-54 PO; B-COTAB18 PO; BIMA0.01 OPB; BIOT1CAP8 PO; BNTHP PO; BUPRTAB PO; CHOL20009 PO; CYAN100T PO; CYAN1LOZ PO; ERGO500037 PO; FLUT1INH INH; LEVO175T PO; LISI-789 PO; METF500T PO; NABU500T PO; OMEGCAP2 PO; PRED10TA PO
== END | disposition home or self-care (01) ==
LOC: C.LABSPEC 15:41
PROVIDERS: ATTEND Physician Assistant
DX: R19.7 Diarrhea, unspecified (principal)

== ENCOUNTER → 2017-03-22 | Outpatient (CLI) | payer BC ==
[~2017-03-22] MED LIST changes: -BIMA0.01 OPB; -BIOT1CAP8 PO; -CHOL20009 PO; +CYAN100T PO; -CYAN1LOZ PO; +ERGO500037 PO; -FLUT1INH INH; -NABU500T PO; -PRED10TA PO; +SACC250C PO
[2017-03-22 17:32] LABS: HEMATOCRIT 38.4 % (37-47); HEMOGLOBIN 12.5 g/dL (12.0-16.0); MEAN CELL VOLUME 93.2 fL (80-100); MEAN CORPUSCULAR HEMOGLOBIN 30.3 pg (25-34); MEAN CORPUSCULAR HGB CONC 32.6 g/dl (32-36); MEAN PLATELET VOLUME 11.9 fL (7.4-10.4); PLATELET COUNT 313 K/uL (130-400); RED CELL DISTRIBUTION WIDTH CV 14.9 % (11.5-14.5); RED CELL DISTRIBUTION WIDTH SD 50.9 fL (36.4-46.3); WHITE BLOOD COUNT 5.02 K/uL (4.8-10.8)
[2017-03-22 17:50] LABS: ALT/SGPT 19 U/L (12-78); AST/SGOT 19 U/L (15-37); BLOOD UREA NITROGEN 9 mg/dl (7-18); CARBON DIOXIDE 29 mmol/L (21-32); CREATININE 0.76 mg/dl (0.60-1.20); GLUCOSE 86 mg/dl (70-99); POTASSIUM 4.1 mmol/L (3.5-5.1); SODIUM 139 mmol/L (136-145)
[2017-03-22 17:52] LABS: ALKALINE PHOSPHATASE 56 U/L (45-117); TOTAL PROTEIN 6.6 gm/dl (6.4-8.2)
== END | disposition home or self-care (01) ==
LOC: C.LABPBG 12:17
PROVIDERS: ATTEND Internal Medicine
DX: A04.72 Enterocolitis due to Clostridium difficile, not specified as recurrent (principal); R63.4 Abnormal weight loss; R79.89 Other specified abnormal findings of blood chemistry

== ENCOUNTER → 2017-04-09 | Outpatient (CLI) | payer BC ==
--- NOTE | 2017-04-09 16:06 | DIAGNOSTIC IMAGING REPORT ---
EXAMINATION: PELVIC ULTRASOUND (transabdominal only) CLINICAL HISTORY: OVARIAN DYSFUNCTION, NONINFLAMMATORY DIS OF OVARY COMPARISON STUDY: CT scan dated 03/02/2017 FINDINGS: The uterus measured 6.4 x 2.5 x 4.3 cm. The endometrial stripe measured 2 mm. The right ovary measured 44 x 36 x 41 mm. The left ovary measured 35 x 29 x 26 mm. There is no ultrasonographic evidence of ovarian torsion. It should be noted that ovarian torsion can be present with normal Doppler ultrasonographic findings. The patient declined endovaginal scanning. IMPRESSION: Unremarkable transabdominal pelvic ultrasound Electronically signed by: Benson Salmon M.D. 04/09/2017 4:04 PM Dictated Date/Time: 04/09/2017 4:03 PM
== END | disposition home or self-care (01) ==
LOC: C.ULTR 15:30
PROVIDERS: ATTEND Internal Medicine
DX: E28.8 Other ovarian dysfunction (principal); N83.8 Other noninflammatory disorders of ovary, fallopian tube and broad ligament